=== PATIENT | female | born 1940 | race Two or more races ===

== ENCOUNTER 2016-07-12 03:41 | Emergency (ER) | payer BC, MEDICARE ==
[~2016-07-12] VITALS: Ht 165.1 cm; Wt 88.0 kg
[~2016-07-12 03:41] MED LIST: ASPI325T4 PO; CHOL500016 PO; CLIN300C86 PO; FLEC50TA PO; GABA-586 PO; HYDR-971 PO; HYDR12.53 PO; LEVO125T5 PO; LOSA100T6 PO; SIMV40TA3 PO; SITA1TAB11 PO
[2016-07-12 03:55] VITALS: BP 183/88
[2016-07-12] MEDS ORDERED: LIDOCAINE 2% VISCOUS 15 ML SOLUTION. ONE (04:15)
[2016-07-12] MEDS ORDERED: LIDOCAINE 2% JELLY 6ML IN APPLICATOR. MM ONE (04:45)
[2016-07-12] MEDS ORDERED: LIDOCAINE 1%/EPI 1:100,000 20 ML VIAL. INJ ONE (04:45)
[2016-07-12 04:52] LABS: BASO # 0.1 x10^3/uL (0.0-0.2); BASO % 1 % (0-3); EOS % 8 % (0-3); HEMATOCRIT 39.7 % (36.0-47.0); HEMOGLOBIN 13.1 g/dL (12.0-15.5); LYMPH # 3.4 x10^3/uL (1.0-4.8); LYMPH % 31 % (24-48); MEAN CORPUSCULAR HEMOGLOBIN 27 pg (25-35); MEAN CORPUSCULAR HGB CONC 33 g/dL (31-37); MEAN CORPUSCULAR VOLUME 82 fL (79-100); MONO % 7 % (0-9); NEUT % 54 % (31-73); PLATELET COUNT 269 x10^3/uL (140-400); RED BLOOD COUNT 4.84 x10^6/uL (3.50-5.40); RED CELL DISTRIBUTION WIDTH 14.5 % (11.5-14.5); WHITE BLOOD COUNT 10.7 x10^3/uL (4.0-11.0)
[2016-07-12 04:59] LABS: CALCIUM 10.7 mg/dL (8.5-10.1); CREATININE 0.9 mg/dL (0.6-1.0); GFR 61.2; POTASSIUM 3.1 mmol/L (3.5-5.1)
[2016-07-12 05:03] LABS: INR 1.1 (0.8-1.1); PROTHROMBIN TIME PATIENT 13.1 SEC (11.7-14.0)
[2016-07-12 05:06] LABS: ALBUMIN 3.9 g/dL (3.4-5.0); TOTAL BILIRUBIN 0.4 mg/dL (0.2-1.0); TOTAL PROTEIN 7.9 g/dL (6.4-8.2)
[2016-07-12] MEDS ORDERED: CEPH-264 PO (05:27)
--- NOTE | 2016-07-12 05:28 | PHYS DOC ---
Past Medical History Past Medical History: A-Fib, Diabetes-Type II, High Cholesterol, Hypertension, Hyperthyroid Past Surgical History: Appendectomy, , Hysterectomy, Tonsillectomy, Other Additional Past Surgical Histo: adhesions, sinus, cysts, Vonwildabrands dx Alcohol Use: None Drug Use: None Adult General Chief Complaint Chief Complaint: NOSEBLEED HPI HPI Patient is a 75 year old female with history significant for von Willebrand's disease who presents here today secondary to epistaxis was started earlier this morning. Patient reports she's had episodes in the past with severe epistaxis. Patient denies any recent trauma. Patient's physical exam is significant for active bleeding from her left naris. Patient is coughing up significant amount of blood clot. Patient's nares were cleared with blowing her nose into towel. I was able to visualize inside her nares showed have a vessel that does appear to be excoriated. We applied pressure on her nose for approximately 20 minutes with nasal clamps with significant improvement in the amount of bleeding that she was having. After hemostasis had been obtained versus lidocaine was injected into her left naris. A nasal tampon was then inserted which the patient tolerated very well. A nasal tampon was infiltrated with 5 mL of light a with epi. And the clamps were placed back on the patient's nares. Patient's clamps were placed for approximately an additional 10 minutes. Patient no further episodes of rectal bleeding. The clamps removed and the patient was monitored in the ER for an additional 30 minutes without any further incidence of bleeding. Patient feels very comfortable the plan to be discharged home at this time and to follow-up with her primary care physician for reevaluation. I did discuss the patient that she might need to see an ENT specialist but that she should call her doctor in the morning and asked them if he feels comfortable taking care of her or if he was referred to a specialist. Patient will be discharged home on Keflex for prophylaxis against sinusitis. A/P epistaxis: Hemostasis obtained after pressure and nasal tampon placed. Patient stable to be discharged home. Review of Systems Review of Systems Constitutional: Denies fever or chills [] Eyes: Denies change in visual acuity, redness, or eye pain [] All other review systems are negative except as documented in history of present illness portion Current Medications Current Medications Current Medications Medications (Trade) Dose Ordered Sig/Kamron Start Time Stop Time Status Last Admin Dose Admin Lidocaine HCl (Glydo (Lidocaine) Jelly) 1 hiro 1X ONCE 07/12/16 04:45 07/12/16 04:46 DC 07/12/16 04:45 1 HIRO Lidocaine HCl (Viscous Lidocaine) 15 ml STK-MED ONCE 07/12/16 04:15 07/12/16 04:16 DC Lidocaine/ Epinephrine (Xylocaine 1%-Epi 1:100,000) 20 ml 1X ONCE 07/12/16 04:45 07/12/16 04:46 DC Allergies Allergies Allergies Coded Allergies Type Severity Reaction Last Updated Verified Penicillins Allergy Intermediate 01/06/15 No Sulfa (Sulfonamide Antibiotics) Allergy Intermediate rash 01/06/15 No latex Allergy Mild sneezing 01/06/15 No Physical Exam Physical Exam Constitutional: Well developed, well nourished, no acute distress, non-toxic appearance. [] HENT: Normocephalic, atraumatic, bilateral external ears normal, oropharynx moist, no oral exudates, please see above. Active bleeding from left naris. Eyes: PERRLA, EOMI, conjunctiva normal, no discharge. [] Neck: Normal range of motion, no tenderness, supple, no stridor. [] Cardiovascular:Heart rate regular rhythm, no murmur [] Lungs & Thorax: Bilateral breath sounds clear to auscultation [] Abdomen: Bowel sounds normal, soft, no tenderness, no masses, no pulsatile masses. [] Skin: Warm, dry, no erythema, no rash. [] Back: No tenderness, no CVA tenderness. [] Extremities: No tenderness, no cyanosis, no clubbing, ROM intact, no edema. [] Neurologic: Alert and oriented X 3, normal motor function, normal sensory function, no focal deficits noted. [] Psychologic: Affect normal, judgement normal, mood normal. [] Current Patient Data Vital Signs Vital Signs Date Time Temp Pulse Resp B/P (MAP) Pulse Ox O2 Delivery O2 Flow Rate FiO2 07/12/16 03:55 98.8 105 20 183/88 (119) 95 Room Air 98.8 Lab Values Laboratory Tests Test 07/12/16 04:39 White Blood Count 10.7 x10^3/uL (4.0-11.0) Red Blood Count 4.84 x10^6/uL (3.50-5.40) Hemoglobin 13.1 g/dL (12.0-15.5) Hematocrit 39.7 % (36.0-47.0) Mean Corpuscular Volume 82 fL (79-100) Mean Corpuscular Hemoglobin 27 pg (25-35) Mean Corpuscular Hemoglobin Concent 33 g/dL (31-37) Red Cell Distribution Width 14.5 % (11.5-14.5) Platelet Count 269 x10^3/uL (140-400) Neutrophils (%) (Auto) 54 % (31-73) Lymphocytes (%) (Auto) 31 % (24-48) Monocytes (%) (Auto) 7 % (0-9) Eosinophils (%) (Auto) 8 % (0-3) H Basophils (%) (Auto) 1 % (0-3) Neutrophils # (Auto) 5.8 x10^3uL (1.8-7.7) Lymphocytes # (Auto) 3.4 x10^3/uL (1.0-4.8) Monocytes # (Auto) 0.7 x10^3/uL (0.0-1.1) Eosinophils # (Auto) 0.8 x10^3/uL (0.0-0.7) H Basophils # (Auto) 0.1 x10^3/uL (0.0-0.2) Prothrombin Time 13.1 SEC (11.7-14.0) Prothrombin Time INR 1.1 (0.8-1.1) Sodium Level 136 mmol/L (136-145) Potassium Level 3.1 mmol/L (3.5-5.1) L Chloride Level 98 mmol/L (98-107) Carbon Dioxide Level 28 mmol/L (21-32) Anion Gap 10 (6-14) Blood Urea Nitrogen 21 mg/dL (7-20) H Creatinine 0.9 mg/dL (0.6-1.0) Estimated GFR (Cockcroft-Gault) 61.2 BUN/Creatinine Ratio 23 (6-20) H Glucose Level 208 mg/dL (70-99) H Calcium Level 10.7 mg/dL (8.5-10.1) H Total Bilirubin 0.4 mg/dL (0.2-1.0) Aspartate Amino Transferase (AST) 22 U/L (15-37) Alanine Aminotransferase (ALT) 30 U/L (14-59) Alkaline Phosphatase 61 U/L (46-116) Total Protein 7.9 g/dL (6.4-8.2) Albumin 3.9 g/dL (3.4-5.0) Albumin/Globulin Ratio 1.0 (1.0-1.7) Laboratory Tests 07/12/16 04:39 Laboratory Tests 07/12/16 04:39 EKG EKG [] Radiology/Procedures Radiology/Procedures [] Impressions: All labs were within normal limits. Physical exam on patient's right foot reveals ecchymosis tenderness and swelling to her right fifth metatarsal at the MTP junction. Patient also complaining of pain to her right foot. Patient reports she stopped her right foot up against a table earlier today. Patient's x-ray of her right foot reveals no acute fracture in the fourth metatarsal. Course & Med Decision Making Course & Med Decision Making Pertinent Labs and Imaging studies reviewed. (See chart for details) [] Dragon Disclaimer Dragon Disclaimer This electronic medical record was generated, in whole or in part, using a voice recognition dictation system. Departure Departure Impression: Primary Impression: Epistaxis Additional Impressions: Contusion of right foot Von Willebrand's (-Baldo') disease Disposition: HOME, SELF-CARE Condition: IMPROVED Referrals: CHRIS MURPHY MD (PCP) Patient Instructions: Contusion, Nosebleed Scripts Cephalexin (KEFLEX) 500 Mg Capsule 500 MG PO QID for 5 Days, #20 CAP Prov: JOSE CRUZ WALL MD 07/12/16 Problem Qualifiers JOSE CRUZ WALL MD July 12, 2016 05:28
--- NOTE | 2016-07-12 08:01 | RAD ---
Indication injury, pain. AP oblique and lateral views of the right foot were obtained. No acute bony abnormality is seen
== END 2016-07-12 05:45 | disposition home or self-care (01) ==
LOC: ER 03:41
DX: R04.0 Epistaxis (principal); S90.31XA Contusion of right foot, initial encounter; D68.0 Von Willebrand disease; I48.91 Unspecified atrial fibrillation; I10 Essential (primary) hypertension; E78.00 Pure hypercholesterolemia, unspecified; E11.9 Type 2 diabetes mellitus without complications; E05.90 Thyrotoxicosis, unspecified without thyrotoxic crisis or storm; Z90.710 Acquired absence of both cervix and uterus; Z90.49 Acquired absence of other specified parts of digestive tract; Z88.2 Allergy status to sulfonamides; Z91.040 Latex allergy status; Z88.0 Allergy status to penicillin; X58.XXXA Exposure to other specified factors, initial encounter; Y93.89 Activity, other specified; Y92.89 Other specified places as the place of occurrence of the external cause; Y99.8 Other external cause status
CPT/HCPCS: 30901; 36415; 73630; 80053; 85027; 85610; 99285-25

== ENCOUNTER → 2017-11-19 | Day surgery (SDC) | payer BC ==
[~2017-11-19] MED LIST changes: -ASPI325T4 PO; +ASPI325T8 PO; +CEFP100T PO; +CEPH-264 PO; +CLIN300C8 PO; -CLIN300C86 PO; +DULO30CA2 PO; +GLIP5TAB10 PO; +HYDR25TA9 PO; +HYDROmorphone 2 MG/ML VIAL IV PRN; +IV RINGERS,LACTATED 1000ML 1,000 ML IV SCH; +LIDOCAINE 1% PF 2 ML VIAL. ID PRN; +LIDOCAINE 2% PF Vial for OR 5 ML VIAL. ONE; -LOSA100T6 PO; +LOSA100T7 PO; +LOSA50TA2 PO; +MAGN400C PO; +METF10007 PO; +METO-239 PO; +MORPHINE SULFATE 2 MG/ML VIAL. IV PRN; +PROCHLORPERAZINE 10 MG/2 ML VIAL. IV PRN; +PROPOFOL 20 ML IV ONE; +Pantoprazole PO; +fentaNYL PF VIAL 100 MCG/2 ML VIAL IV PRN
[2017-11-19 08:05] VITALS: BP 136/79
== END | disposition home or self-care (01) ==
LOC: ENDOS 05:46
PROVIDERS: ATTEND Internal Medicine Gastroenterology
DX: K22.2 Esophageal obstruction (principal); I10 Essential (primary) hypertension; E78.5 Hyperlipidemia, unspecified; K21.9 Gastro-esophageal reflux disease without esophagitis; E11.9 Type 2 diabetes mellitus without complications; E03.9 Hypothyroidism, unspecified; I48.91 Unspecified atrial fibrillation; M19.90 Unspecified osteoarthritis, unspecified site; I35.1 Nonrheumatic aortic (valve) insufficiency; Z90.79 Acquired absence of other genital organ(s); Z90.722 Acquired absence of ovaries, bilateral; Z98.890 Other specified postprocedural states; Z88.0 Allergy status to penicillin; Z88.2 Allergy status to sulfonamides; Z88.1 Allergy status to other antibiotic agents; Z91.040 Latex allergy status; Z79.82 Long term (current) use of aspirin; Z79.899 Other long term (current) drug therapy; Z79.84 Long term (current) use of oral hypoglycemic drugs
CPT/HCPCS: 43235; 43450; J2001; J2704

== ENCOUNTER 2018-01-05 08:31 | Inpatient (IN) | payer BC ==
[~2018-01-05] VITALS: Ht 157.5 cm; Wt 76.2 kg
[~2018-01-05 08:31] MED LIST changes: -HYDROmorphone 2 MG/ML VIAL IV PRN; -IV RINGERS,LACTATED 1000ML 1,000 ML IV SCH; -LIDOCAINE 1% PF 2 ML VIAL. ID PRN; -LIDOCAINE 2% PF Vial for OR 5 ML VIAL. ONE; -MORPHINE SULFATE 2 MG/ML VIAL. IV PRN; -PROCHLORPERAZINE 10 MG/2 ML VIAL. IV PRN; -PROPOFOL 20 ML IV ONE; -fentaNYL PF VIAL 100 MCG/2 ML VIAL IV PRN
[2018-01-05] MEDS ORDERED: IV NORMAL SALINE 1000ML BAG 1,000 ML IV SCH (08:46)
[2018-01-05] MEDS ORDERED: NORMAL SALINE IV ONE (09:00)
[2018-01-05] MEDS ORDERED: ACETAMINOPHEN 500 MG TABLET PO ONE (09:15)
--- NOTE | 2018-01-05 09:16 | PHYS DOC ---
Past Medical History Past Medical History: A-Fib, Diabetes-Type II, High Cholesterol, Hypertension, Hyperthyroid, Migraines, UTI, Other Additional Past Medical Histor: SEPSIS Past Surgical History: Appendectomy, , Hysterectomy, Tonsillectomy, Tubal ligation, Other Additional Past Surgical Histo: adhesions, sinus, cysts, Vonwildabrands dx Alcohol Use: None Drug Use: None Adult General Chief Complaint Chief Complaint: FEVER HPI HPI Patient is a 77 year old female with history of A. fib, hypertension, high cholesterol, frequent UTIs, who presents today complaining of altered mental status since this morning. Patient states the family reported to mother she has been "blubbering." Patient states she has history of UTI. Patient denies any nausea vomiting. She is febrile. Temperature via EMS was 101.6 Review of Systems Review of Systems Constitutional: Fever Eyes: Denies change in visual acuity, redness, or eye pain [] HENT: Denies nasal congestion or sore throat [] Respiratory: Denies cough or shortness of breath [] Cardiovascular: No additional information not addressed in HPI [] GI: Denies abdominal pain, nausea, vomiting, bloody stools or diarrhea [] : Denies dysuria or hematuria [] Musculoskeletal: Denies back pain or joint pain [] Integument: Denies rash or skin lesions [] Neurologic: Reports altered mental status. Denies headache, focal weakness or sensory changes [] All other systems were reviewed and found to be within normal limits, except as documented in this note. Current Medications Current Medications Current Medications Medications (Trade) Dose Ordered Sig/Kamron Start Time Stop Time Status Last Admin Dose Admin Acetaminophen (Tylenol) 1,000 mg 1X ONCE 01/05/18 09:15 01/05/18 09:16 DC 01/05/18 09:37 1,000 MG Ceftriaxone Sodium 50 ml @ 100 mls/hr 1X ONCE 01/05/18 09:00 01/05/18 09:29 DC 01/05/18 09:37 100 MLS/HR Sodium Chloride 1,000 ml @ 100 mls/hr Q10H 01/05/18 08:46 01/05/18 18:45 01/05/18 09:37 100 MLS/HR Allergies Allergies Allergies Coded Allergies Type Severity Reaction Last Updated Verified Penicillins Allergy Intermediate 11/19/17 Yes Sulfa (Sulfonamide Antibiotics) Allergy Intermediate rash 11/19/17 Yes ciprofloxacin Allergy Intermediate 11/19/17 Yes latex Allergy Mild sneezing 11/19/17 Yes Physical Exam Physical Exam Constitutional: Well developed, well nourished, no acute distress, non-toxic appearance. [] HENT: Normocephalic, atraumatic, bilateral external ears normal, oropharynx moist, no oral exudates, nose normal. [] Eyes: PERRLA, EOMI, conjunctiva normal, no discharge. [] Neck: Normal range of motion, no tenderness, supple, no stridor. [] Cardiovascular:Heart rate regular rhythm, no murmur [] Lungs & Thorax: Bilateral breath sounds clear to auscultation [] Abdomen: Bowel sounds normal, soft, no tenderness, no masses, no pulsatile masses. [] Skin: Warm, dry, no erythema, no rash. [] Back: No tenderness, no CVA tenderness. [] Extremities: No tenderness, no cyanosis, no clubbing, ROM intact, no edema. [] Neurologic: Alert and oriented X 3, normal motor function, normal sensory function, no focal deficits noted. [] Psychologic: Affect normal, judgement normal, mood normal. [] Current Patient Data Vital Signs Vital Signs Date Time Temp Pulse Resp B/P (MAP) Pulse Ox O2 Delivery O2 Flow Rate FiO2 01/05/18 11:30 84 18 117/58 (77) 97 Nasal Cannula 2.0 01/05/18 08:31 100.4 100.4 Lab Values Laboratory Tests Test 01/05/18 08:20 01/05/18 08:30 01/05/18 09:27 01/05/18 09:30 Influenza Type A Antigen Negative (NEGATIVE) Influenza Type B Antigen Negative (NEGATIVE) White Blood Count 10.1 x10^3/uL (4.0-11.0) Red Blood Count 4.97 x10^6/uL (3.50-5.40) Hemoglobin 13.4 g/dL (12.0-15.5) Hematocrit 39.9 % (36.0-47.0) Mean Corpuscular Volume 80 fL (79-100) Mean Corpuscular Hemoglobin 27 pg (25-35) Mean Corpuscular Hemoglobin Concent 34 g/dL (31-37) Red Cell Distribution Width 14.8 % (11.5-14.5) H Platelet Count 249 x10^3/uL (140-400) Neutrophils (%) (Auto) 89 % (31-73) H Lymphocytes (%) (Auto) 3 % (24-48) L Monocytes (%) (Auto) 4 % (0-9) Eosinophils (%) (Auto) 4 % (0-3) H Basophils (%) (Auto) 1 % (0-3) Neutrophils # (Auto) 9.0 x10^3uL (1.8-7.7) H Lymphocytes # (Auto) 0.3 x10^3/uL (1.0-4.8) L Monocytes # (Auto) 0.4 x10^3/uL (0.0-1.1) Eosinophils # (Auto) 0.4 x10^3/uL (0.0-0.7) Basophils # (Auto) 0.0 x10^3/uL (0.0-0.2) Segmented Neutrophils % 89 % (35-66) H Band Neutrophils % 2 % (0-9) Lymphocytes % 2 % (24-48) L Monocytes % 3 % (0-10) Eosinophils % 4 % (0-5) Platelet Estimate Adequate (ADEQUATE) Lactic Acid Level 5.1 mmol/L (0.4-2.0) *H Troponin I Quantitative < 0.017 ng/mL (0.000-0.055) Urine Collection Type Unknown Urine Color Yellow Urine Clarity Clear Urine pH 7.5 Urine Specific [place] 1.015 Urine Protein 30 mg/dL (NEG-TRACE) Urine Glucose (UA) Negative mg/dL (NEG) Urine Ketones (Stick) Trace mg/dL (NEG) Urine Blood Negative (NEG) Urine Nitrite Negative (NEG) Urine Bilirubin Negative (NEG) Urine Urobilinogen Dipstick 0.2 mg/dL (0.2 mg/dL) Urine Leukocyte Esterase Negative (NEG) Urine RBC 3-5 /HPF (0-2) Urine WBC Occ /HPF (0-4) Urine Squamous Epithelial Cells Occ /LPF Urine Bacteria Few /HPF (0-FEW) Urine Hyaline Casts Occasional /HPF Sodium Level 140 mmol/L (136-145) Potassium Level 4.0 mmol/L (3.5-5.1) Chloride Level 101 mmol/L (98-107) Carbon Dioxide Level 26 mmol/L (21-32) Anion Gap 13 (6-14) Blood Urea Nitrogen 23 mg/dL (7-20) H Creatinine 1.3 mg/dL (0.6-1.0) H Estimated GFR (Cockcroft-Gault) 39.8 BUN/Creatinine Ratio 18 (6-20) Glucose Level 198 mg/dL (70-99) H Calcium Level 10.0 mg/dL (8.5-10.1) Total Bilirubin 0.5 mg/dL (0.2-1.0) Aspartate Amino Transferase (AST) 20 U/L (15-37) Alanine Aminotransferase (ALT) 25 U/L (14-59) Alkaline Phosphatase 72 U/L (46-116) Total Protein 8.1 g/dL (6.4-8.2) Albumin 4.0 g/dL (3.4-5.0) Albumin/Globulin Ratio 1.0 (1.0-1.7) Laboratory Tests 01/05/18 08:30 Laboratory Tests 01/05/18 09:30 EKG EKG 10:[address] Mackenzie sinus rhythm HR 85 no STEMI[] Radiology/Procedures Radiology/Procedures []PROCEDURE: PORTABLE CHEST 1V PORTABLE CHEST 1V History: Weakness and fever. Comparison: October 28, 2017 Findings: Single view of the chest is submitted. There is no infiltrate, pneumothorax, or effusion. The pericardial cardiac silhouette is stable, within normal limits given technique. There is atherosclerotic calcification near the aortic arch, somewhat tortuous thoracic aorta. Impression: 1. There is no radiographic evidence of acute cardiopulmonary disease. Electronically signed by: Servando Castañeda MD (01/05/2018 9:15 AM) [id number] DICTATED and SIGNED BY: SERVANDO CASTAÑEDA MD DATE: 01/05/18913 Course & Med Decision Making Course & Med Decision Making Pertinent Labs and Imaging studies reviewed. (See chart for details) This is a 77-year-old female patient presenting to the ED with altered mental status. Also febrile. Temperature in route was 101.6, temp on arrival was 100.4 HR 105, patient was started on sepsis protocol. Patient was also given Rocephin. CBC with a normal WBC but noted for left shift, CMP with no acute findings, urine analysis is negative for infection, chest x-ray negative for any acute findings. Lactic 5.1 at 8:30 AM, repeat lactic after IV fluids 2.1. Negative influenza A or B. Vitals also improving with heart rate of 84 from 105. 11:[address] Hitchcock who accepted patient for admission Routine consult placed for infectious disease. Dragon Disclaimer Dragon Disclaimer This electronic medical record was generated, in whole or in part, using a voice recognition dictation system. Departure Departure Impression: Primary Impression: Fever Additional Impressions: Lactic acidosis Tachycardia Disposition: ADMITTED INPATIENT Condition: STABLE Referrals: CHRIS MURPHY MD (PCP) Problem Qualifiers Primary Impression: Fever Fever type: unspecified Qualified Codes: R50.9 - Fever, unspecified MUTUNGAMINISTERIO STOVE POLISHER Jan 05, 2018 09:16
[2018-01-05 09:19] LABS: BASO % 1 % (0-3); EOS # 0.4 x10^3/uL (0.0-0.7); EOS % 4 % (0-3); HEMATOCRIT 39.9 % (36.0-47.0); HEMOGLOBIN 13.4 g/dL (12.0-15.5); LYMPH # 0.3 x10^3/uL (1.0-4.8); LYMPH % 3 % (24-48); MEAN CORPUSCULAR HEMOGLOBIN 27 pg (25-35); MEAN CORPUSCULAR HGB CONC 34 g/dL (31-37); MEAN CORPUSCULAR VOLUME 80 fL (79-100); MONO # 0.4 x10^3/uL (0.0-1.1); MONO % 4 % (0-9); NEUT % 89 % (31-73); PLATELET COUNT 249 x10^3/uL (140-400); RED BLOOD COUNT 4.97 x10^6/uL (3.50-5.40); RED CELL DISTRIBUTION WIDTH 14.8 % (11.5-14.5); WHITE BLOOD COUNT 10.1 x10^3/uL (4.0-11.0)
--- NOTE | 2018-01-05 09:19 | RAD ---
PORTABLE CHEST 1V History: Weakness and fever. Comparison: October 28, 2017 Findings: Single view of the chest is submitted. There is no infiltrate, pneumothorax, or effusion. The pericardial cardiac silhouette is stable, within normal limits given technique. There is atherosclerotic calcification near the aortic arch, somewhat tortuous thoracic aorta. Impression: 1. There is no radiographic evidence of acute cardiopulmonary disease. Electronically signed by: Robetro Rothman MD (01/05/2018 9:15 AM) [id number]
[2018-01-05 09:35] LABS: BILIRUBIN,URINE NEGATIVE (NEG); CLARITY,URINE CLEAR; COLOR,URINE YELLOW; NITRITE,URINE NEGATIVE (NEG); PH,URINE 7.5; PROTEIN,URINE 30 mg/dL (NEG-TRACE); UROBILINOGEN,URINE 0.2 mg/dL (0.2 mg/dL)
[2018-01-05 09:57] LABS: CREATININE 1.3 mg/dL (0.6-1.0); GFR 39.8
[2018-01-05 10:03] LABS: TOTAL BILIRUBIN 0.5 mg/dL (0.2-1.0); TOTAL PROTEIN 8.1 g/dL (6.4-8.2)
[2018-01-05 10:14] LABS: HYALINE CASTS, URINE OCCASIONAL /HPF; SQUAMOUS EPITHELIAL CELL,UR OCC /LPF
[2018-01-05 10:15] LABS: BACTERIA,URINE FEW /HPF (0-FEW); WBC,URINE OCC /HPF (0-4)
--- NOTE | 2018-01-05 10:30 | EKG ---
[facility] [address] [place] [address] Test Date: 2018-01-05 Test Time: 10:15:28 Pat Name: THOMAS HOPKINS Department: Room: Gender: F Pulley Maintainer: SHARI : 1940 Requested By: MINISTERIO BURNETTE Order Number: [id number] Reading MD: Jesus Manuel Berg Measurements Intervals [place] Rate: 85 P: -97 DC: 100 QRS: -24 QRSD: 104 T: 17 QT: 406 QTc: 489 Interpretive Statements SINUS RHYTHM LEFTWARD AXIS PROLONGED QT NO SPECIFIC ECG ABNORMALITIES Electronically Signed On 01-07-2018 10:33:36 CDT by Jesus Manuel Berg
[2018-01-05 10:33] LABS: % BANDS 2 % (0-9); % EOS 4 % (0-5); % LYMPHS 2 % (24-48); % MONOS 3 % (0-10); % SEGS 89 % (35-66)
[2018-01-05 10:34] LABS: PLT ESTIMATE ADEQUATE (ADEQUATE)
[2018-01-05 11:39] LABS: INFLUENZA A PATIENT NEGATIVE (NEGATIVE); INFLUENZA B PATIENT NEGATIVE (NEGATIVE)
[2018-01-05] MEDS ORDERED: DEXTROSE 50% 25 GM / 50ML DISP.SYRIN. IV PRN (12:15)
[2018-01-05] MEDS ORDERED: ONDANSETRON PF 4 MG/2 ML VIAL. IV PRN (12:15)
[2018-01-05] MEDS ORDERED: ACETAMINOPHEN 325 MG TABLET. PO PRN (12:15)
[2018-01-05] MEDS ORDERED: MORPHINE SULFATE 2 MG/ML VIAL. IV PRN (12:15)
[2018-01-05] MEDS: IV NORMAL SALINE 1000ML BAG 1,000 ML IV ONE (12:15)
[2018-01-05 15:00] VITALS: BP 121/80
--- NOTE | 2018-01-05 17:15 | HP ---
ADMIT DATE: 01/05/2018 CHIEF COMPLAINT: Fever. HISTORY OF PRESENT ILLNESS: The patient is a pleasant elderly female who presents with fever. She saw her doctor yesterday, was sent home with some antibiotics. She has got a history of frequent UTIs. She actually saw urologist for the UTIs. She thought she was doing well and then today she developed another fever. She came to the ER for evaluation. Family reports the patient may have had some mental status change. Temperature with EMS was 101.6, when she got to the ER, it was 100.4. She is slightly tachycardic, has associated nausea, tried taking some [id number] meds, but that does not seem to work. I discussed the case with ER physician. We are going to admit the patient and give her IV antibiotics and fluids. PAST MEDICAL HISTORY: Persistent fevers recently, UTIs, AFib, diabetes, hypertension, hyperlipidemia, hypothyroidism, migraines, sepsis, , hysterectomy, tonsillectomy, tubal ligation, sinus cyst, adhesions and von Willebrand's disease. ALLERGIES: None. FAMILY HISTORY: Von Willebrand's disease. SOCIAL HISTORY: She does not drink, smoke or take drugs. 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 I think she is . MEDICATIONS: Reviewed, please refer to the MRAD. REVIEW OF SYSTEMS: GENERAL: She complains of fevers. SKIN: No bruising, hair changes or rashes. EYES: No blurred, double or loss of vision. NOSE AND THROAT: No history of nosebleeds, hoarseness or sore throat. HEART: No history of palpitations, chest pain or shortness of breath on exertion. LUNGS: Denies cough, hemoptysis, wheezing or shortness of breath. GASTROINTESTINAL: Denies changes in appetite, nausea, vomiting, diarrhea or constipation. GENITOURINARY: She complains of dysuria. NEUROLOGIC: She complains of weakness. PSYCHIATRIC: No history of panic, anxiety or depression. ENDOCRINE: No history of heat or cold intolerance, polyuria or polydipsia. EXTREMITIES: Denies muscle weakness, joint pain, pain on walking or stiffness. PHYSICAL EXAMINATION: VITAL SIGNS: Temperature currently afebrile, but was 100.4 when she arrived, pulse 90, respirations 18, blood pressure 132/78. GENERAL: She is alert, cooperative. Her family is present. HEART: Normal S1, S2. LUNGS: Clear. ABDOMEN: Soft, slightly tender in the lower quadrants. EXTREMITIES: No edema. ENDOCRINE: No thyromegaly. LYMPHATICS: No cervical nodes. HEMATOPOIETIC: No bruising. LABORATORY DATA: Urinalysis only showed a few bacteria and a few squamous epithelial cells. White count is 10. BUN is 23, creatinine 1.3, glucose 198. ASSESSMENT AND PLAN: Fever of unknown origin. The patient has been admitted. We will start IV Levaquin, IV fluids, repeat her labs in the morning. We will try to resume her home meds. If she is not resolved by morning, we will consider consultation with other specialists such as Infectious Disease or Genitourinary Medicine. BONNIE HOANG DO DR: ELSA/rachael JOB#: [id number] / [id number]
[2018-01-05 19:00] VITALS: BP 137/74
[2018-01-05 23:00] VITALS: BP 155/70
[2018-01-06 03:00] VITALS: BP 148/67
[2018-01-06 05:59] LABS: BASO % 1 % (0-3); EOS # 0.5 x10^3/uL (0.0-0.7); EOS % 8 % (0-3); HEMATOCRIT 33.8 % (36.0-47.0); HEMOGLOBIN 11.4 g/dL (12.0-15.5); LYMPH # 1.5 x10^3/uL (1.0-4.8); LYMPH % 22 % (24-48); MEAN CORPUSCULAR HEMOGLOBIN 27 pg (25-35); MEAN CORPUSCULAR HGB CONC 34 g/dL (31-37); MEAN CORPUSCULAR VOLUME 79 fL (79-100); MONO # 0.5 x10^3/uL (0.0-1.1); MONO % 8 % (0-9); NEUT # 4.2 x10^3uL (1.8-7.7); NEUT % 62 % (31-73); PLATELET COUNT 201 x10^3/uL (140-400); RED BLOOD COUNT 4.26 x10^6/uL (3.50-5.40); RED CELL DISTRIBUTION WIDTH 14.7 % (11.5-14.5); WHITE BLOOD COUNT 6.8 x10^3/uL (4.0-11.0)
[2018-01-06 06:02] LABS: CALCIUM 9.5 mg/dL (8.5-10.1); CREATININE 0.7 mg/dL (0.6-1.0); GFR 81.4
[2018-01-06 07:00] VITALS: BP 186/79
[2018-01-06] MEDS: cefTRIAXone IV Push 1 GM VIAL. IVP SCH (09:49)
--- NOTE | 2018-01-06 10:16 | PDOC ---
PROGRESS NOTES History of Present Illness History of Present Illness ASSESSMENT AND PLAN: sepsis Fever acute encephalo[ailyn DM A-fib HTN Leg pain hypokalemia admitted. IV Levaquin, IV fluids, home meds. blood cult consultation Infectious Disease sq lovenox dvt prophylaxis DM A-fib HTN Leg pain Vitals Vitals Vital Signs Date Time Temp Pulse Resp B/P (MAP) Pulse Ox O2 Delivery O2 Flow Rate FiO2 01/06/18 07:00 98.1 74 18 186/79 (114) 96 Room Air 98.1 01/05/18 20:20 2.0 Physical Exam General: Alert, Oriented X3, Cooperative, No acute distress Heart: Regular rate Lungs: Clear Abdomen: Normal bowel sounds, Soft Extremities: No clubbing, No cyanosis, No edema Skin: No significant lesion Labs LABS PROCEDURE: PORTABLE CHEST 1V PORTABLE CHEST 1V History: Weakness and fever. Comparison: October 28, 2017 Findings: Single view of the chest is submitted. There is no infiltrate, pneumothorax, or effusion. The pericardial cardiac silhouette is stable, within normal limits given technique. There is atherosclerotic calcification near the aortic arch, somewhat tortuous thoracic aorta. Impression: 1. There is no radiographic evidence of acute cardiopulmonary disease. Electronically signed by: Roberto Rothman MD (01/05/2018 9:15 AM) [email or web address] Laboratory Tests Test 01/05/18 12:20 01/05/18 16:50 01/05/18 21:26 01/06/18 05:00 Lactic Acid Level 2.1 mmol/L (0.4-2.0) 2.5 mmol/L (0.4-2.0) Glucose (Fingerstick) 100 mg/dL (70-99) White Blood Count 6.8 x10^3/uL (4.0-11.0) Red Blood Count 4.26 x10^6/uL (3.50-5.40) Hemoglobin 11.4 g/dL (12.0-15.5) Hematocrit 33.8 % (36.0-47.0) Mean Corpuscular Volume 79 fL (79-100) Mean Corpuscular Hemoglobin 27 pg (25-35) Mean Corpuscular Hemoglobin Concent 34 g/dL (31-37) Red Cell Distribution Width 14.7 % (11.5-14.5) Platelet Count 201 x10^3/uL (140-400) Neutrophils (%) (Auto) 62 % (31-73) Lymphocytes (%) (Auto) 22 % (24-48) Monocytes (%) (Auto) 8 % (0-9) Eosinophils (%) (Auto) 8 % (0-3) Basophils (%) (Auto) 1 % (0-3) Neutrophils # (Auto) 4.2 x10^3uL (1.8-7.7) Lymphocytes # (Auto) 1.5 x10^3/uL (1.0-4.8) Monocytes # (Auto) 0.5 x10^3/uL (0.0-1.1) Eosinophils # (Auto) 0.5 x10^3/uL (0.0-0.7) Basophils # (Auto) 0.0 x10^3/uL (0.0-0.2) Sodium Level 142 mmol/L (136-145) Potassium Level 3.0 mmol/L (3.5-5.1) Chloride Level 105 mmol/L (98-107) Carbon Dioxide Level 27 mmol/L (21-32) Anion Gap 10 (6-14) Blood Urea Nitrogen 14 mg/dL (7-20) Creatinine 0.7 mg/dL (0.6-1.0) Estimated GFR (Cockcroft-Gault) 81.4 Glucose Level 124 mg/dL (70-99) Calcium Level 9.5 mg/dL (8.5-10.1) Test 01/06/18 08:21 Glucose (Fingerstick) 129 mg/dL (70-99) Assessment and Plan Assessmemt and Plan Problems Medical Problems: (1) Fever Status: Acute (2) Lactic acidosis Status: Acute (3) Tachycardia Status: Acute Comment Review of Relevant I have reviewed the following items jovita (where applicable) has been applied. Labs Laboratory Tests Test 01/05/18 08:20 01/05/18 08:30 01/05/18 09:27 01/05/18 09:30 Influenza Type A Antigen Negative (NEGATIVE) Influenza Type B Antigen Negative (NEGATIVE) White Blood Count 10.1 x10^3/uL (4.0-11.0) Red Blood Count 4.97 x10^6/uL (3.50-5.40) Hemoglobin 13.4 g/dL (12.0-15.5) Hematocrit 39.9 % (36.0-47.0) Mean Corpuscular Volume 80 fL (79-100) Mean Corpuscular Hemoglobin 27 pg (25-35) Mean Corpuscular Hemoglobin Concent 34 g/dL (31-37) Red Cell Distribution Width 14.8 % (11.5-14.5) Platelet Count 249 x10^3/uL (140-400) Neutrophils (%) (Auto) 89 % (31-73) Lymphocytes (%) (Auto) 3 % (24-48) Monocytes (%) (Auto) 4 % (0-9) Eosinophils (%) (Auto) 4 % (0-3) Basophils (%) (Auto) 1 % (0-3) Neutrophils # (Auto) 9.0 x10^3uL (1.8-7.7) Lymphocytes # (Auto) 0.3 x10^3/uL (1.0-4.8) Monocytes # (Auto) 0.4 x10^3/uL (0.0-1.1) Eosinophils # (Auto) 0.4 x10^3/uL (0.0-0.7) Basophils # (Auto) 0.0 x10^3/uL (0.0-0.2) Segmented Neutrophils % 89 % (35-66) Band Neutrophils % 2 % (0-9) Lymphocytes % 2 % (24-48) Monocytes % 3 % (0-10) Eosinophils % 4 % (0-5) Platelet Estimate Adequate (ADEQUATE) Lactic Acid Level 5.1 mmol/L (0.4-2.0) Troponin I Quantitative < 0.017 ng/mL (0.000-0.055) Urine Collection Type Unknown Urine Color Yellow Urine Clarity Clear Urine pH 7.5 Urine Specific [place] 1.015 Urine Protein 30 mg/dL (NEG-TRACE) Urine Glucose (UA) Negative mg/dL (NEG) Urine Ketones (Stick) Trace mg/dL (NEG) Urine Blood Negative (NEG) Urine Nitrite Negative (NEG) Urine Bilirubin Negative (NEG) Urine Urobilinogen Dipstick 0.2 mg/dL (0.2 mg/dL) Urine Leukocyte Esterase Negative (NEG) Urine RBC 3-5 /HPF (0-2) Urine WBC Occ /HPF (0-4) Urine Squamous Epithelial Cells Occ /LPF Urine Bacteria Few /HPF (0-FEW) Urine Hyaline Casts Occasional /HPF Sodium Level 140 mmol/L (136-145) Potassium Level 4.0 mmol/L (3.5-5.1) Chloride Level 101 mmol/L (98-107) Carbon Dioxide Level 26 mmol/L (21-32) Anion Gap 13 (6-14) Blood Urea Nitrogen 23 mg/dL (7-20) Creatinine 1.3 mg/dL (0.6-1.0) Estimated GFR (Cockcroft-Gault) 39.8 BUN/Creatinine Ratio 18 (6-20) Glucose Level 198 mg/dL (70-99) Calcium Level 10.0 mg/dL (8.5-10.1) Total Bilirubin 0.5 mg/dL (0.2-1.0) Aspartate Amino Transf (AST/SGOT) 20 U/L (15-37) Alanine Aminotransferase (ALT/SGPT) 25 U/L (14-59) Alkaline Phosphatase 72 U/L (46-116) Total Protein 8.1 g/dL (6.4-8.2) Albumin 4.0 g/dL (3.4-5.0) Albumin/Globulin Ratio 1.0 (1.0-1.7) Test 01/05/18 12:20 01/05/18 16:50 01/05/18 21:26 01/06/18 05:00 Lactic Acid Level 2.1 mmol/L (0.4-2.0) 2.5 mmol/L (0.4-2.0) Glucose (Fingerstick) 100 mg/dL (70-99) White Blood Count 6.8 x10^3/uL (4.0-11.0) Red Blood Count 4.26 x10^6/uL (3.50-5.40) Hemoglobin 11.4 g/dL (12.0-15.5) Hematocrit 33.8 % (36.0-47.0) Mean Corpuscular Volume 79 fL (79-100) Mean Corpuscular Hemoglobin 27 pg (25-35) Mean Corpuscular Hemoglobin Concent 34 g/dL (31-37) Red Cell Distribution Width 14.7 % (11.5-14.5) Platelet Count 201 x10^3/uL (140-400) Neutrophils (%) (Auto) 62 % (31-73) Lymphocytes (%) (Auto) 22 % (24-48) Monocytes (%) (Auto) 8 % (0-9) Eosinophils (%) (Auto) 8 % (0-3) Basophils (%) (Auto) 1 % (0-3) Neutrophils # (Auto) 4.2 x10^3uL (1.8-7.7) Lymphocytes # (Auto) 1.5 x10^3/uL (1.0-4.8) Monocytes # (Auto) 0.5 x10^3/uL (0.0-1.1) Eosinophils # (Auto) 0.5 x10^3/uL (0.0-0.7) Basophils # (Auto) 0.0 x10^3/uL (0.0-0.2) Sodium Level 142 mmol/L (136-145) Potassium Level 3.0 mmol/L (3.5-5.1) Chloride Level 105 mmol/L (98-107) Carbon Dioxide Level 27 mmol/L (21-32) Anion Gap 10 (6-14) Blood Urea Nitrogen 14 mg/dL (7-20) Creatinine 0.7 mg/dL (0.6-1.0) Estimated GFR (Cockcroft-Gault) 81.4 Glucose Level 124 mg/dL (70-99) Calcium Level 9.5 mg/dL (8.5-10.1) Test 01/06/18 08:21 Glucose (Fingerstick) 129 mg/dL (70-99) Laboratory Tests Test 01/05/18 12:20 01/05/18 16:50 01/05/18 21:26 01/06/18 05:00 Lactic Acid Level 2.1 mmol/L (0.4-2.0) 2.5 mmol/L (0.4-2.0) Glucose (Fingerstick) 100 mg/dL (70-99) White Blood Count 6.8 x10^3/uL (4.0-11.0) Red Blood Count 4.26 x10^6/uL (3.50-5.40) Hemoglobin 11.4 g/dL (12.0-15.5) Hematocrit 33.8 % (36.0-47.0) Mean Corpuscular Volume 79 fL (79-100) Mean Corpuscular Hemoglobin 27 pg (25-35) Mean Corpuscular Hemoglobin Concent 34 g/dL (31-37) Red Cell Distribution Width 14.7 % (11.5-14.5) Platelet Count 201 x10^3/uL (140-400) Neutrophils (%) (Auto) 62 % (31-73) Lymphocytes (%) (Auto) 22 % (24-48) Monocytes (%) (Auto) 8 % (0-9) Eosinophils (%) (Auto) 8 % (0-3) Basophils (%) (Auto) 1 % (0-3) Neutrophils # (Auto) 4.2 x10^3uL (1.8-7.7) Lymphocytes # (Auto) 1.5 x10^3/uL (1.0-4.8) Monocytes # (Auto) 0.5 x10^3/uL (0.0-1.1) Eosinophils # (Auto) 0.5 x10^3/uL (0.0-0.7) Basophils # (Auto) 0.0 x10^3/uL (0.0-0.2) Sodium Level 142 mmol/L (136-145) Potassium Level 3.0 mmol/L (3.5-5.1) Chloride Level 105 mmol/L (98-107) Carbon Dioxide Level 27 mmol/L (21-32) Anion Gap 10 (6-14) Blood Urea Nitrogen 14 mg/dL (7-20) Creatinine 0.7 mg/dL (0.6-1.0) Estimated GFR (Cockcroft-Gault) 81.4 Glucose Level 124 mg/dL (70-99) Calcium Level 9.5 mg/dL (8.5-10.1) Test 01/06/18 08:21 Glucose (Fingerstick) 129 mg/dL (70-99) Microbiology 01/05/18 Blood Culture - Preliminary, Resulted NO GROWTH AFTER 1 DAY Medications Current Medications Sodium Chloride 1,720 ml @ 1,720 mls/hr 1X ONCE IV Last administered on 01/05at 09:00; Start 01/05/18 at 09:00; Stop 01/05/18 at 09:59; Status DC Sodium Chloride 1,000 ml @ 100 mls/hr Q10H IV Last administered on 01/05/18at 09:37; Start 01/05/18 at 08:46; Stop 01/05/18 at 18:45; Status DC Ceftriaxone Sodium 50 ml @ 100 mls/hr 1X ONCE IV Last administered on at 09:37; Start 01/05/18 at 09:00; Stop 01/05/18 at 09:29; Status DC Acetaminophen (Tylenol) 1,000 mg 1X ONCE PO Last administered on 01/05/18at 09 :37; Start 01/05/18 at 09:15; Stop 01/05/18 at 09:16; Status DC Ondansetron HCl (Zofran) 4 mg PRN Q8HRS PRN IV NAUSEA/VOMITING; Start at 12:15; Stop 01/06/18 at 12:14 Morphine Sulfate (Morphine Sulfate) 2 mg PRN Q2HR PRN IV PAIN; Start 01/05/18 at 12:15; Stop 01/06/18 at 12:14 Acetaminophen (Tylenol) 650 mg PRN Q4HRS PRN PO FEVER Last administered on at 23:27; Start 01/05/18 at 12:15; Stop 01/06/18 at 12:14 Sodium Chloride 1,000 ml @ 125 mls/hr 1X ONCE IV ; Start 01/05/18 at 12:15; Stop 01/05/18 at 20:14; Status DC Dextrose (Dextrose 50%-Water Syringe) 12.5 gm PRN Q15MIN PRN IV SEE COMMENTS; Start 01/05/18 at 12:15 Levofloxacin/ Dextrose 100 ml @ 100 mls/hr Q24H IV ; Start 01/05/18 at 21:00; Status UNV Ceftriaxone Sodium 1 gm/ Dextrose 50 ml @ 100 mls/hr Q24H IV ; Start 01/05/18 at 21:00; Status UNV Ceftriaxone Sodium (Rocephin) 1 gm Q24H IVP Last administered on 01/06/18at 09: 49; Start 01/06/18 at 09:00 Active Scripts Active Magnesium (Magnesium Oxide) 400 Mg Capsule 1 Cap PO DAILY [Pantoprazole] 40 MG Tablet.dr 40 Mg PO DAILYAC 30 Days Cozaar (Losartan Potassium) 50 Mg Tablet 50 Mg PO DAILY 30 Days Metoprolol Succinate ( Xl ) (Metoprolol Succinate) 25 Mg Tab.er.24h 25 Mg PO DAILY 30 Days Reported Gabapentin 300 Mg Capsule 300 Mg PO TID Metformin Hcl 1,000 Mg Tablet 1,000 Mg PO BIDWMEALS Glipizide 5 Mg Tablet 2.5 Mg PO DAILY Levothyroxine Sodium 125 Mcg Tablet 125 Mcg PO DAILYAC Simvastatin 40 Mg Tablet 40 Mg PO HS Flecainide Acetate 50 Mg Tablet 50 Mg PO Aspirin 325 Mg Tablet 325 Mg PO Vitals/I & O Vital Sign - Last 24 Hours 01/05/18 01/05/18 01/05/18 01/05/18 10:30 11:00 11:30 12:00 Pulse 84 86 84 84 Resp 14 14 18 18 B/P (MAP) 119/58 (78) 126/60 (82) 117/58 (77) 118/59 (78) Pulse Ox 97 97 97 97 O2 Delivery Nasal Cannula Nasal Cannula Nasal Cannula Nasal Cannula O2 Flow Rate 2.0 2.0 2.0 2.0 01/05/18 01/05/18 01/05/18 01/05/18 14:58 15:00 19:00 20:20 Temp 97.5 98.1 97.5 98.1 Pulse 72 69 Resp 18 17 B/P (MAP) 121/80 (94) 137/74 (95) Pulse Ox 97 98 O2 Delivery Nasal Cannula Room Air Room Air Nasal Cannula O2 Flow Rate 2.0 2.0 01/05/18 01/06/18 01/06/18 23:00 03:00 07:00 Temp 98.2 98.2 98.1 98.2 98.2 98.1 Pulse 59 57 74 Resp 18 16 18 B/P (MAP) 155/70 (98) 148/67 (94) 186/79 (114) Pulse Ox 97 95 96 O2 Delivery Room Air Room Air Room Air Intake and Output 01/05/18 01/05/18 01/06/18 15:00 23:00 07:00 Intake Total 1770 ml 1680 ml Output Total 1100 ml Balance 1770 ml 580 ml SLADE ZAPATA MD Jan 06, 2018 10:16
[2018-01-06 11:00] VITALS: BP 149/86
--- NOTE | 2018-01-06 13:41 | PDOC ---
Infectious Disease Note Vital Sign Vital Signs Vital Signs Date Time Temp Pulse Resp B/P (MAP) Pulse Ox O2 Delivery O2 Flow Rate FiO2 01/06/18 07:00 98.1 74 18 186/79 (114) 96 Room Air 98.1 01/05/18 20:20 2.0 Labs Lab Laboratory Tests Test 01/05/18 16:50 01/05/18 21:26 01/06/18 05:00 01/06/18 08:21 Lactic Acid Level 2.5 mmol/L (0.4-2.0) Glucose (Fingerstick) 100 mg/dL (70-99) 129 mg/dL (70-99) White Blood Count 6.8 x10^3/uL (4.0-11.0) Red Blood Count 4.26 x10^6/uL (3.50-5.40) Hemoglobin 11.4 g/dL (12.0-15.5) Hematocrit 33.8 % (36.0-47.0) Mean Corpuscular Volume 79 fL (79-100) Mean Corpuscular Hemoglobin 27 pg (25-35) Mean Corpuscular Hemoglobin Concent 34 g/dL (31-37) Red Cell Distribution Width 14.7 % (11.5-14.5) Platelet Count 201 x10^3/uL (140-400) Neutrophils (%) (Auto) 62 % (31-73) Lymphocytes (%) (Auto) 22 % (24-48) Monocytes (%) (Auto) 8 % (0-9) Eosinophils (%) (Auto) 8 % (0-3) Basophils (%) (Auto) 1 % (0-3) Neutrophils # (Auto) 4.2 x10^3uL (1.8-7.7) Lymphocytes # (Auto) 1.5 x10^3/uL (1.0-4.8) Monocytes # (Auto) 0.5 x10^3/uL (0.0-1.1) Eosinophils # (Auto) 0.5 x10^3/uL (0.0-0.7) Basophils # (Auto) 0.0 x10^3/uL (0.0-0.2) Sodium Level 142 mmol/L (136-145) Potassium Level 3.0 mmol/L (3.5-5.1) Chloride Level 105 mmol/L (98-107) Carbon Dioxide Level 27 mmol/L (21-32) Anion Gap 10 (6-14) Blood Urea Nitrogen 14 mg/dL (7-20) Creatinine 0.7 mg/dL (0.6-1.0) Estimated GFR (Cockcroft-Gault) 81.4 Glucose Level 124 mg/dL (70-99) Calcium Level 9.5 mg/dL (8.5-10.1) Test 01/06/18 11:59 Glucose (Fingerstick) 158 mg/dL (70-99) Micro Microbiology 01/05/18 Blood Culture - Preliminary, Resulted NO GROWTH AFTER 1 DAY Objective Assessment Lactic acidosis - better Fever h/o recent UTI -Took one dose abx OP -Followed by urology for recurrent UTIs Multiple abx allergies: PCN, can't remember; cipro & sulfa -itching DM A-fib HTN Leg pain Plan Plan of Care Clinically improving Check CK with pain in lower ext. Rocephin f/u cultures Supportive care Thank you Attending Co-Sign Attending Co-Sign The patient was seen and interviewed as well as examined at the bedside. The chart was reviewed. The case was discussed. Agree with the plan of care. STEFANIE ABDULLAHI APRN Jan 06, 2018 13:41 HEIDI BECK MD Jan 06, 2018 15:41
[2018-01-06 15:00] VITALS: BP 186/86
[2018-01-06] MEDS: PANTOPRAZOLE 40 MG TABLET.DR. PO SCH (18:00)
[2018-01-06] MEDS: glipiZIDE 5 MG TABLET PO SCH (18:00)
[2018-01-06] MEDS: IV NORMAL SALINE 1000ML BAG 1,000 ML IV ONE (18:35)
[2018-01-06] MEDS: metFORMIN 500 MG TABLET PO SCH (18:36)
[2018-01-06] MEDS: LOSARTAN POTASSIUM 50 MG TABLET. PO SCH (18:37)
[2018-01-06] MEDS: ASPIRIN 325 MG TABLET PO SCH (18:38)
[2018-01-06] MEDS: MAGNESIUM OXIDE 400 MG TABLET PO SCH (18:38)
[2018-01-06] MEDS: FLECAINIDE ACETATE 50 MG TABLET. PO SCH (18:40)
[2018-01-06] MEDS: METOPROLOL SUCC 24HR ER 25 MG TAB.ER.24H. PO SCH (18:40)
[2018-01-06] MEDS: traMADol 50 MG TABLET PO PRN (18:41)
[2018-01-06 19:00] VITALS: BP 180/81
[2018-01-06] MEDS: diphenhydrAMINE HCL 25 MG CAPSULE PO PRN (20:41)
[2018-01-06] MEDS: GABAPENTIN 300 MG CAPSULE. PO SCH (20:41)
[2018-01-06] MEDS ORDERED: SIMVASTATIN 40 MG TABLET. PO SCH (21:00)
[2018-01-06] MEDS ORDERED: ENALAPRILAT 2.5 MG/2 ML VIAL. IVP PRN (21:30)
--- NOTE | 2018-01-06 22:45 | CONS ---
DATE OF CONSULTATION: 01/06/2018 REFERRING PHYSICIAN: Chayito Beck APRN REASON FOR CONSULTATION: Fever and lactic acidosis. HISTORY OF PRESENT ILLNESS: This is a 77-year-old female who explains that yesterday morning at about 4:00 she woke up and went to the bathroom without any problem. She felt fine and fell back to sleep. At about 6:00, she woke up again to urinate except this time she felt weak and could not get up out of bed. Her helped her to her feet, but unfortunately her legs gave out and she fell to the floor. She was confused and her daughter told her she felt very warm. On arrival to the ER, she had a temperature of 100.4 and heart rate of 105. WBC count was normal with a lactic acid of 5.1. Urinalysis showed occasional wbc's and a few bacteria. Blood cultures are negative to date. She is currently on Rocephin empirically. The patient was hospitalized in October of this year for fever and lactic acidosis as well. At that time, workup did not reveal a source of infection. She recently was seen by Urology for recurrent urinary tract infection for which she was prescribed antibiotic. She took one dose before this admission. She had 2 prior UTIs this year. She complains of some dysuria without frequency, urgency or retention. Since her fall, she says her legs have been cramping. She denies chills, body aches, or sweats. PAST MEDICAL HISTORY: Atrial fibrillation, diabetes mellitus, hypertension, hyperlipidemia, hypothyroidism, migraines. PAST SURGICAL HISTORY: Hysterectomy, appendectomy, tonsillectomy. SOCIAL HISTORY: The patient is and lives at home. ALLERGIES: PENICILLIN, She cannot recall type of reaction. CIPRO and SULFA caused itching. MEDICATIONS: Ceftriaxone. Other medications are available and have been reviewed on the MAY. REVIEW OF SYSTEMS: Per HPI, otherwise all other review of systems is negative. PHYSICAL EXAMINATION: GENERAL: The patient is lying down, alert, in no apparent distress. VITAL SIGNS: Temperature is 98.1, blood pressure 186/79, heart rate 74, respiratory rate 18, pulse oximetry is 96% on room air. BMI is 30. HEENT: Pupils equally round, normal conjunctivae. Oral cavity, pharynx pink and moist. NECK: Supple. LUNGS: Clear to auscultation. HEART: S1, S2. ABDOMEN: Obese, bowel sounds active, soft, nontender. EXTREMITIES: No gross edema or cyanosis. SKIN: Warm without rash. NEUROLOGIC: Alert and oriented x 3. Gross movements intact. LABORATORY DATA: Today's WBC is 6.8, hemoglobin 11.4, platelet count 201,000. Creatinine 0.7, BUN 14. Sodium 142, potassium 3.0. Glucose 124. Repeat lactic acid 2.5, total bilirubin 0.5, AST 20, ALT 25, albumin 4.0. Urinalysis per HPI. Influenza screen negative. Blood cultures negative to date. A chest x-ray showed no infiltrate, pneumothorax or effusion. IMPRESSION: 1. Lactic acidosis, improved. 2. Fever. 3. History of recent urinary tract infection. She was on antibiotics prior to admission and is followed by Urology. 4. Multiple antibiotic allergies. 5. Diabetes mellitus. 6. Atrial fibrillation. 7. Hypertension. 8. Leg pain. PLAN: The patient is clinically improving. We will check a CK level considering pain in the lower extremities, continue the Rocephin. We will follow up on the cultures. Supportive care. Thank you, Chayito Beck APRN for asking us to participate in this patient's care. Should you have further questions or concerns, please call. The patient seen and examined and plan of care implemented by Dr. Heidi Monroe. DICTATED BY: This is Anastacio Jones, nursing practitioner. HEIDI MONROE MD DR: DENISE/rachael JOB#: [id number] / [id number]
[2018-01-06 23:00] VITALS: BP 165/73
[2018-01-07 03:00] VITALS: BP 164/70
[2018-01-07 05:27] LABS: BASO # 0.1 x10^3/uL (0.0-0.2); BASO % 1 % (0-3); EOS # 0.6 x10^3/uL (0.0-0.7); EOS % 9 % (0-3); HEMATOCRIT 32.5 % (36.0-47.0); HEMOGLOBIN 10.9 g/dL (12.0-15.5); LYMPH # 2.3 x10^3/uL (1.0-4.8); LYMPH % 33 % (24-48); MEAN CORPUSCULAR HEMOGLOBIN 27 pg (25-35); MEAN CORPUSCULAR HGB CONC 34 g/dL (31-37); MEAN CORPUSCULAR VOLUME 79 fL (79-100); MONO # 0.6 x10^3/uL (0.0-1.1); MONO % 9 % (0-9); NEUT # 3.5 x10^3uL (1.8-7.7); NEUT % 49 % (31-73); PLATELET COUNT 212 x10^3/uL (140-400); RED BLOOD COUNT 4.11 x10^6/uL (3.50-5.40); RED CELL DISTRIBUTION WIDTH 14.6 % (11.5-14.5)
[2018-01-07 05:44] LABS: CALCIUM 9.4 mg/dL (8.5-10.1); GFR 53.9; POTASSIUM 3.6 mmol/L (3.5-5.1)
[2018-01-07] MEDS ORDERED: LEVOTHYROXINE 125 MCG TABLET PO SCH (06:00)
[2018-01-07 07:00] VITALS: BP 152/60
[2018-01-07] MEDS: ASPIRIN 325 MG TABLET PO SCH (07:57)
[2018-01-07] MEDS: glipiZIDE 5 MG TABLET PO SCH (07:59)
[2018-01-07] MEDS: PANTOPRAZOLE 40 MG TABLET.DR. PO SCH (07:59)
[2018-01-07] MEDS: metFORMIN 500 MG TABLET PO SCH (08:00)
[2018-01-07] MEDS: FLECAINIDE ACETATE 50 MG TABLET. PO SCH (08:00)
[2018-01-07] MEDS: traMADol 50 MG TABLET PO PRN (08:01)
--- NOTE | 2018-01-07 08:17 | PDOC ---
PROGRESS NOTES Chief Complaint Chief Complaint sepsis Fever acute encephalo[ailyn DM A-fib HTN Leg pain hypokalemia History of Present Illness History of Present Illness Admitted for fever, lactic acidosis and confusion from home, lives with her . Improved with antibiotics, ID consultation, fluids. ASSESSMENT AND PLAN: sepsis Fever acute encephalo[ailyn DM A-fib HTN Leg pain hypokalemia admitted. IV Levaquin, IV fluids, home meds. blood cult consultation Infectious Disease sq lovenox dvt prophylaxis DM A-fib HTN Leg pain Vitals Vitals Vital Signs Date Time Temp Pulse Resp B/P (MAP) Pulse Ox O2 Delivery O2 Flow Rate FiO2 01/07/18 08:01 16 Room Air 01/07/18 08:00 56 152/60 01/07/18 03:00 97.3 95 97.3 01/06/18 18:41 2.0 Physical Exam General: Alert, Oriented X3, Cooperative, No acute distress Heart: Regular rate Lungs: Clear Abdomen: Normal bowel sounds, Soft Extremities: No clubbing, No cyanosis, No edema Skin: No significant lesion Labs LABS Laboratory Tests Test 01/06/18 08:21 01/06/18 11:59 01/06/18 16:49 01/06/18 20:59 Glucose (Fingerstick) 129 mg/dL (70-99) 158 mg/dL (70-99) 194 mg/dL (70-99) 167 mg/dL (70-99) Test 01/07/18 04:50 01/07/18 07:33 White Blood Count 7.0 x10^3/uL (4.0-11.0) Red Blood Count 4.11 x10^6/uL (3.50-5.40) Hemoglobin 10.9 g/dL (12.0-15.5) Hematocrit 32.5 % (36.0-47.0) Mean Corpuscular Volume 79 fL (79-100) Mean Corpuscular Hemoglobin 27 pg (25-35) Mean Corpuscular Hemoglobin Concent 34 g/dL (31-37) Red Cell Distribution Width 14.6 % (11.5-14.5) Platelet Count 212 x10^3/uL (140-400) Neutrophils (%) (Auto) 49 % (31-73) Lymphocytes (%) (Auto) 33 % (24-48) Monocytes (%) (Auto) 9 % (0-9) Eosinophils (%) (Auto) 9 % (0-3) Basophils (%) (Auto) 1 % (0-3) Neutrophils # (Auto) 3.5 x10^3uL (1.8-7.7) Lymphocytes # (Auto) 2.3 x10^3/uL (1.0-4.8) Monocytes # (Auto) 0.6 x10^3/uL (0.0-1.1) Eosinophils # (Auto) 0.6 x10^3/uL (0.0-0.7) Basophils # (Auto) 0.1 x10^3/uL (0.0-0.2) Sodium Level 143 mmol/L (136-145) Potassium Level 3.6 mmol/L (3.5-5.1) Chloride Level 108 mmol/L (98-107) Carbon Dioxide Level 26 mmol/L (21-32) Anion Gap 9 (6-14) Blood Urea Nitrogen 16 mg/dL (7-20) Creatinine 1.0 mg/dL (0.6-1.0) Estimated GFR (Cockcroft-Gault) 53.9 Glucose Level 128 mg/dL (70-99) Calcium Level 9.4 mg/dL (8.5-10.1) Glucose (Fingerstick) 115 mg/dL (70-99) Assessment and Plan Assessmemt and Plan Problems Medical Problems: (1) Fever Status: Acute (2) Lactic acidosis Status: Acute (3) Tachycardia Status: Acute Comment Review of Relevant I have reviewed the following items jovita (where applicable) has been applied. Labs Laboratory Tests Test 01/05/18 08:20 01/05/18 08:30 01/05/18 09:27 01/05/18 09:30 Influenza Type A Antigen Negative (NEGATIVE) Influenza Type B Antigen Negative (NEGATIVE) White Blood Count 10.1 x10^3/uL (4.0-11.0) Red Blood Count 4.97 x10^6/uL (3.50-5.40) Hemoglobin 13.4 g/dL (12.0-15.5) Hematocrit 39.9 % (36.0-47.0) Mean Corpuscular Volume 80 fL (79-100) Mean Corpuscular Hemoglobin 27 pg (25-35) Mean Corpuscular Hemoglobin Concent 34 g/dL (31-37) Red Cell Distribution Width 14.8 % (11.5-14.5) Platelet Count 249 x10^3/uL (140-400) Neutrophils (%) (Auto) 89 % (31-73) Lymphocytes (%) (Auto) 3 % (24-48) Monocytes (%) (Auto) 4 % (0-9) Eosinophils (%) (Auto) 4 % (0-3) Basophils (%) (Auto) 1 % (0-3) Neutrophils # (Auto) 9.0 x10^3uL (1.8-7.7) Lymphocytes # (Auto) 0.3 x10^3/uL (1.0-4.8) Monocytes # (Auto) 0.4 x10^3/uL (0.0-1.1) Eosinophils # (Auto) 0.4 x10^3/uL (0.0-0.7) Basophils # (Auto) 0.0 x10^3/uL (0.0-0.2) Segmented Neutrophils % 89 % (35-66) Band Neutrophils % 2 % (0-9) Lymphocytes % 2 % (24-48) Monocytes % 3 % (0-10) Eosinophils % 4 % (0-5) Platelet Estimate Adequate (ADEQUATE) Lactic Acid Level 5.1 mmol/L (0.4-2.0) Troponin I Quantitative < 0.017 ng/mL (0.000-0.055) Urine Collection Type Unknown Urine Color Yellow Urine Clarity Clear Urine pH 7.5 Urine Specific Banks 1.015 Urine Protein 30 mg/dL (NEG-TRACE) Urine Glucose (UA) Negative mg/dL (NEG) Urine Ketones (Stick) Trace mg/dL (NEG) Urine Blood Negative (NEG) Urine Nitrite Negative (NEG) Urine Bilirubin Negative (NEG) Urine Urobilinogen Dipstick 0.2 mg/dL (0.2 mg/dL) Urine Leukocyte Esterase Negative (NEG) Urine RBC 3-5 /HPF (0-2) Urine WBC Occ /HPF (0-4) Urine Squamous Epithelial Cells Occ /LPF Urine Bacteria Few /HPF (0-FEW) Urine Hyaline Casts Occasional /HPF Sodium Level 140 mmol/L (136-145) Potassium Level 4.0 mmol/L (3.5-5.1) Chloride Level 101 mmol/L (98-107) Carbon Dioxide Level 26 mmol/L (21-32) Anion Gap 13 (6-14) Blood Urea Nitrogen 23 mg/dL (7-20) Creatinine 1.3 mg/dL (0.6-1.0) Estimated GFR (Cockcroft-Gault) 39.8 BUN/Creatinine Ratio 18 (6-20) Glucose Level 198 mg/dL (70-99) Calcium Level 10.0 mg/dL (8.5-10.1) Total Bilirubin 0.5 mg/dL (0.2-1.0) Aspartate Amino Transf (AST/SGOT) 20 U/L (15-37) Alanine Aminotransferase (ALT/SGPT) 25 U/L (14-59) Alkaline Phosphatase 72 U/L (46-116) Total Protein 8.1 g/dL (6.4-8.2) Albumin 4.0 g/dL (3.4-5.0) Albumin/Globulin Ratio 1.0 (1.0-1.7) Test 01/05/18 12:20 01/05/18 16:50 01/05/18 21:26 01/06/18 05:00 Lactic Acid Level 2.1 mmol/L (0.4-2.0) 2.5 mmol/L (0.4-2.0) Glucose (Fingerstick) 100 mg/dL (70-99) White Blood Count 6.8 x10^3/uL (4.0-11.0) Red Blood Count 4.26 x10^6/uL (3.50-5.40) Hemoglobin 11.4 g/dL (12.0-15.5) Hematocrit 33.8 % (36.0-47.0) Mean Corpuscular Volume 79 fL (79-100) Mean Corpuscular Hemoglobin 27 pg (25-35) Mean Corpuscular Hemoglobin Concent 34 g/dL (31-37) Red Cell Distribution Width 14.7 % (11.5-14.5) Platelet Count 201 x10^3/uL (140-400) Neutrophils (%) (Auto) 62 % (31-73) Lymphocytes (%) (Auto) 22 % (24-48) Monocytes (%) (Auto) 8 % (0-9) Eosinophils (%) (Auto) 8 % (0-3) Basophils (%) (Auto) 1 % (0-3) Neutrophils # (Auto) 4.2 x10^3uL (1.8-7.7) Lymphocytes # (Auto) 1.5 x10^3/uL (1.0-4.8) Monocytes # (Auto) 0.5 x10^3/uL (0.0-1.1) Eosinophils # (Auto) 0.5 x10^3/uL (0.0-0.7) Basophils # (Auto) 0.0 x10^3/uL (0.0-0.2) Sodium Level 142 mmol/L (136-145) Potassium Level 3.0 mmol/L (3.5-5.1) Chloride Level 105 mmol/L (98-107) Carbon Dioxide Level 27 mmol/L (21-32) Anion Gap 10 (6-14) Blood Urea Nitrogen 14 mg/dL (7-20) Creatinine 0.7 mg/dL (0.6-1.0) Estimated GFR (Cockcroft-Gault) 81.4 Glucose Level 124 mg/dL (70-99) Calcium Level 9.5 mg/dL (8.5-10.1) Creatine Kinase 82 U/L (26-192) Test 01/06/18 08:21 01/06/18 11:59 01/06/18 16:49 01/06/18 20:59 Glucose (Fingerstick) 129 mg/dL (70-99) 158 mg/dL (70-99) 194 mg/dL (70-99) 167 mg/dL (70-99) Test 01/07/18 04:50 01/07/18 07:33 White Blood Count 7.0 x10^3/uL (4.0-11.0) Red Blood Count 4.11 x10^6/uL (3.50-5.40) Hemoglobin 10.9 g/dL (12.0-15.5) Hematocrit 32.5 % (36.0-47.0) Mean Corpuscular Volume 79 fL (79-100) Mean Corpuscular Hemoglobin 27 pg (25-35) Mean Corpuscular Hemoglobin Concent 34 g/dL (31-37) Red Cell Distribution Width 14.6 % (11.5-14.5) Platelet Count 212 x10^3/uL (140-400) Neutrophils (%) (Auto) 49 % (31-73) Lymphocytes (%) (Auto) 33 % (24-48) Monocytes (%) (Auto) 9 % (0-9) Eosinophils (%) (Auto) 9 % (0-3) Basophils (%) (Auto) 1 % (0-3) Neutrophils # (Auto) 3.5 x10^3uL (1.8-7.7) Lymphocytes # (Auto) 2.3 x10^3/uL (1.0-4.8) Monocytes # (Auto) 0.6 x10^3/uL (0.0-1.1) Eosinophils # (Auto) 0.6 x10^3/uL (0.0-0.7) Basophils # (Auto) 0.1 x10^3/uL (0.0-0.2) Sodium Level 143 mmol/L (136-145) Potassium Level 3.6 mmol/L (3.5-5.1) Chloride Level 108 mmol/L (98-107) Carbon Dioxide Level 26 mmol/L (21-32) Anion Gap 9 (6-14) Blood Urea Nitrogen 16 mg/dL (7-20) Creatinine 1.0 mg/dL (0.6-1.0) Estimated GFR (Cockcroft-Gault) 53.9 Glucose Level 128 mg/dL (70-99) Calcium Level 9.4 mg/dL (8.5-10.1) Glucose (Fingerstick) 115 mg/dL (70-99) Laboratory Tests Test 01/06/18 08:21 01/06/18 11:59 01/06/18 16:49 01/06/18 20:59 Glucose (Fingerstick) 129 mg/dL (70-99) 158 mg/dL (70-99) 194 mg/dL (70-99) 167 mg/dL (70-99) Test 01/07/18 04:50 01/07/18 07:33 White Blood Count 7.0 x10^3/uL (4.0-11.0) Red Blood Count 4.11 x10^6/uL (3.50-5.40) Hemoglobin 10.9 g/dL (12.0-15.5) Hematocrit 32.5 % (36.0-47.0) Mean Corpuscular Volume 79 fL (79-100) Mean Corpuscular Hemoglobin 27 pg (25-35) Mean Corpuscular Hemoglobin Concent 34 g/dL (31-37) Red Cell Distribution Width 14.6 % (11.5-14.5) Platelet Count 212 x10^3/uL (140-400) Neutrophils (%) (Auto) 49 % (31-73) Lymphocytes (%) (Auto) 33 % (24-48) Monocytes (%) (Auto) 9 % (0-9) Eosinophils (%) (Auto) 9 % (0-3) Basophils (%) (Auto) 1 % (0-3) Neutrophils # (Auto) 3.5 x10^3uL (1.8-7.7) Lymphocytes # (Auto) 2.3 x10^3/uL (1.0-4.8) Monocytes # (Auto) 0.6 x10^3/uL (0.0-1.1) Eosinophils # (Auto) 0.6 x10^3/uL (0.0-0.7) Basophils # (Auto) 0.1 x10^3/uL (0.0-0.2) Sodium Level 143 mmol/L (136-145) Potassium Level 3.6 mmol/L (3.5-5.1) Chloride Level 108 mmol/L (98-107) Carbon Dioxide Level 26 mmol/L (21-32) Anion Gap 9 (6-14) Blood Urea Nitrogen 16 mg/dL (7-20) Creatinine 1.0 mg/dL (0.6-1.0) Estimated GFR (Cockcroft-Gault) 53.9 Glucose Level 128 mg/dL (70-99) Calcium Level 9.4 mg/dL (8.5-10.1) Glucose (Fingerstick) 115 mg/dL (70-99) Microbiology 01/05/18 Blood Culture - Preliminary, Resulted NO GROWTH AFTER 1 DAY Medications Current Medications Sodium Chloride 1,720 ml @ 1,720 mls/hr 1X ONCE IV Last administered on 01/05at 09:00; Start 01/05/18 at 09:00; Stop 01/05/18 at 09:59; Status DC Sodium Chloride 1,000 ml @ 100 mls/hr Q10H IV Last administered on 01/05/18at 09:37; Start 01/05/18 at 08:46; Stop 01/05/18 at 18:45; Status DC Ceftriaxone Sodium 50 ml @ 100 mls/hr 1X ONCE IV Last administered on at 09:37; Start 01/05/18 at 09:00; Stop 01/05/18 at 09:29; Status DC Acetaminophen (Tylenol) 1,000 mg 1X ONCE PO Last administered on 01/05/18at 09 :37; Start 01/05/18 at 09:15; Stop 01/05/18 at 09:16; Status DC Ondansetron HCl (Zofran) 4 mg PRN Q8HRS PRN IV NAUSEA/VOMITING; Start at 12:15; Stop 01/06/18 at 12:14; Status DC Morphine Sulfate (Morphine Sulfate) 2 mg PRN Q2HR PRN IV PAIN; Start 01/05/18 at 12:15; Stop 01/06/18 at 12:14; Status DC Acetaminophen (Tylenol) 650 mg PRN Q4HRS PRN PO FEVER Last administered on at 23:27; Start 01/05/18 at 12:15; Stop 01/06/18 at 12:14; Status DC Sodium Chloride 1,000 ml @ 125 mls/hr 1X ONCE IV Last administered on at 18:35; Start 01/05/18 at 12:15; Stop 01/05/18 at 20:14; Status DC Dextrose (Dextrose 50%-Water Syringe) 12.5 gm PRN Q15MIN PRN IV SEE COMMENTS; Start 01/05/18 at 12:15 Levofloxacin/ Dextrose 100 ml @ 100 mls/hr Q24H IV ; Start 01/05/18 at 21:00; Status UNV Ceftriaxone Sodium 1 gm/ Dextrose 50 ml @ 100 mls/hr Q24H IV ; Start 01/05/18 at 21:00; Status UNV Ceftriaxone Sodium (Rocephin) 1 gm Q24H IVP Last administered on 01/06/18at 09: 49; Start 01/06/18 at 09:00 Aspirin (Asa Aspirin) 325 mg DAILY08 PO Last administered on 01/06/18at 18:38 ; Start 01/06/18 at 18:00 Flecainide Acetate (Tambocor) 50 mg DAILY08 PO Last administered on 01/07/18 08:00; Start 01/06/18 at 18:00 Glipizide (Glucotrol) 2.5 mg DAILYAC PO Last administered on 01/07/18 07:59; Start 01/06/18 at 18:00 Losartan Potassium (Cozaar) 50 mg DAILY PO Last administered on 01/06/18at 18:37 ; Start 01/06/18 at 18:00 Metoprolol Succinate (Toprol Xl) 25 mg DAILY PO Last administered on 01/06/18 18:40; Start 01/06/18 at 18:00 Gabapentin (Neurontin) 300 mg TID PO Last administered on 01/06/18 20:41; Start 01/06/18 at 21:00 Levothyroxine Sodium (Synthroid) 125 mcg DAILY06 PO Last administered on 06:12; Start 01/07/18 at 06:00 Magnesium Oxide (Magnesium Oxide) 400 mg DAILY PO Last administered on at 18:38; Start 01/06/18 at 18:00 Metformin HCl (Glucophage) 1,000 mg BIDWMEALS PO Last administered on 08:00; Start 01/06/18 at 18:00 Simvastatin (Zocor) 40 mg QHS PO Last administered on 01/06/18 20:41; Start 01/06/18 at 21:00 Pantoprazole Sodium (Protonix) 40 mg DAILYAC PO Last administered on 01/07/18 07:59; Start 01/06/18 at 18:00 Diphenhydramine HCl (Benadryl) 50 mg PRN QHS PRN PO INSOMNIA Last administered on 01/06/18 20:41; Start 01/06/18 at 18:00 Tramadol HCl (Ultram) 50 mg PRN Q6HRS PRN PO PAIN Last administered on 08:01; Start 01/06/18 at 18:00 Enalaprilat (Vasotec Inj) 1.25 mg PRN Q4HRS PRN IVP HYPERTENSION, SEE COMMENTS Last administered on 01/06/18at 21:52; Start 01/06/18 at 21:30 Active Scripts Active Magnesium (Magnesium Oxide) 400 Mg Capsule 1 Cap PO DAILY [Pantoprazole] 40 MG Tablet.dr 40 Mg PO DAILYAC 30 Days Cozaar (Losartan Potassium) 50 Mg Tablet 50 Mg PO DAILY 30 Days Metoprolol Succinate ( Xl ) (Metoprolol Succinate) 25 Mg Tab.er.24h 25 Mg PO DAILY 30 Days Reported Gabapentin 300 Mg Capsule 300 Mg PO TID Metformin Hcl 1,000 Mg Tablet 1,000 Mg PO BIDWMEALS Glipizide 5 Mg Tablet 2.5 Mg PO DAILY Levothyroxine Sodium 125 Mcg Tablet 125 Mcg PO DAILYAC Simvastatin 40 Mg Tablet 40 Mg PO HS Flecainide Acetate 50 Mg Tablet 50 Mg PO Aspirin 325 Mg Tablet 325 Mg PO Vitals/I & O Vital Sign - Last 24 Hours 01/06/18 01/06/18 01/06/18 01/06/18 11:00 15:00 18:37 18:40 Temp 97.6 97.6 Pulse 72 76 76 76 Resp 18 18 B/P (MAP) 149/86 (107) 186/86 (119) 186/86 186/86 Pulse Ox 97 95 O2 Delivery Room Air Room Air 01/06/18 01/06/18 01/06/18 01/06/18 18:40 18:41 19:00 19:41 Temp 98.1 98.1 Pulse 76 73 Resp 16 18 B/P (MAP) 186/86 180/81 (114) Pulse Ox 95 98 95 O2 Delivery Nasal Cannula Room Air Room Air O2 Flow Rate 2.0 01/06/18 01/06/18 01/06/18 01/07/18 20:08 21:52 23:00 03:00 Temp 98.1 97.3 98.1 97.3 Pulse 69 61 59 Resp 18 18 B/P (MAP) 191/78 165/73 (103) 164/70 (101) Pulse Ox 97 95 O2 Delivery Room Air Room Air Room Air 01/07/18 01/07/18 08:00 08:01 Pulse 56 Resp 16 B/P (MAP) 152/60 O2 Delivery Room Air Intake and Output 01/06/18 01/06/18 01/07/18 15:00 23:00 07:00 Intake Total 110 ml 390 ml 360 ml Balance 110 ml 390 ml 360 ml BRUCE SANTORO MD Jan 07, 2018 08:17
[2018-01-07] MEDS ORDERED: POTASSIUM CHLORIDE 20 MEQ TABLET.ER. PO ONE (08:30)
[2018-01-07] MEDS: cefTRIAXone IV Push 1 GM VIAL. IVP SCH (09:46)
[2018-01-07] MEDS: MAGNESIUM OXIDE 400 MG TABLET PO SCH (09:47)
[2018-01-07] MEDS: GABAPENTIN 300 MG CAPSULE. PO SCH (09:47)
[2018-01-07] MEDS: LOSARTAN POTASSIUM 50 MG TABLET. PO SCH (09:47)
[2018-01-07] MEDS: METOPROLOL SUCC 24HR ER 25 MG TAB.ER.24H. PO SCH (09:47)
[2018-01-07 11:00] VITALS: BP 179/79
[2018-01-07] MEDS: diphenhydrAMINE HCL 25 MG CAPSULE PO PRN (11:28)
--- NOTE | 2018-01-07 11:38 | PDOC ---
Infectious Disease Note Subjective Subjective Feeling better Slept well Legs feel little bit "rubbery". Still ache but less and ambulated No further fevers last 24 hours Denies chills/aches Eating ok but doesn't like the food ROS ROS per HPI otherwise neg Vital Sign Vital Signs Vital Signs Date Time Temp Pulse Resp B/P (MAP) Pulse Ox O2 Delivery O2 Flow Rate FiO2 01/07/18 09:47 56 152/60 01/07/18 09:01 16 Room Air 01/07/18 07:00 98.1 92 98.1 01/06/18 18:41 2.0 Physical Exam PHYSICAL EXAM GENERAL: Sitting on the side of the bed, alert, relaxed appearance HEENT: Pupils equally round, normal conjunctivae. Oral cavity, pharynx pink and moist. NECK: Supple. LUNGS: Clear to auscultation. HEART: S1, S2. ABDOMEN: Obese, bowel sounds active, soft, nontender. EXTREMITIES: No gross edema or cyanosis. SKIN: Warm without rash. NEUROLOGIC: Alert and oriented x 3. Gross movements intact. Labs Lab Laboratory Tests Test 01/06/18 11:59 01/06/18 16:49 01/06/18 20:59 01/07/18 04:50 Glucose (Fingerstick) 158 mg/dL (70-99) 194 mg/dL (70-99) 167 mg/dL (70-99) White Blood Count 7.0 x10^3/uL (4.0-11.0) Red Blood Count 4.11 x10^6/uL (3.50-5.40) Hemoglobin 10.9 g/dL (12.0-15.5) Hematocrit 32.5 % (36.0-47.0) Mean Corpuscular Volume 79 fL (79-100) Mean Corpuscular Hemoglobin 27 pg (25-35) Mean Corpuscular Hemoglobin Concent 34 g/dL (31-37) Red Cell Distribution Width 14.6 % (11.5-14.5) Platelet Count 212 x10^3/uL (140-400) Neutrophils (%) (Auto) 49 % (31-73) Lymphocytes (%) (Auto) 33 % (24-48) Monocytes (%) (Auto) 9 % (0-9) Eosinophils (%) (Auto) 9 % (0-3) Basophils (%) (Auto) 1 % (0-3) Neutrophils # (Auto) 3.5 x10^3uL (1.8-7.7) Lymphocytes # (Auto) 2.3 x10^3/uL (1.0-4.8) Monocytes # (Auto) 0.6 x10^3/uL (0.0-1.1) Eosinophils # (Auto) 0.6 x10^3/uL (0.0-0.7) Basophils # (Auto) 0.1 x10^3/uL (0.0-0.2) Sodium Level 143 mmol/L (136-145) Potassium Level 3.6 mmol/L (3.5-5.1) Chloride Level 108 mmol/L (98-107) Carbon Dioxide Level 26 mmol/L (21-32) Anion Gap 9 (6-14) Blood Urea Nitrogen 16 mg/dL (7-20) Creatinine 1.0 mg/dL (0.6-1.0) Estimated GFR (Cockcroft-Gault) 53.9 Glucose Level 128 mg/dL (70-99) Calcium Level 9.4 mg/dL (8.5-10.1) Test 01/07/18 07:33 Glucose (Fingerstick) 115 mg/dL (70-99) Micro Microbiology 01/05/18 Blood Culture - Preliminary, Resulted NO GROWTH AFTER 2 DAY Objective Assessment Lactic acidosis - better ? metformin Fever - better h/o recent UTI -Took one dose abx OP -Followed by urology for recurrent UTIs Multiple abx allergies: PCN, can't remember; cipro & sulfa -itching DM A-fib HTN Plan Plan of Care Clinically improving CK 82 Discontinue Rocephin BC neg so far Supportive care D/w D/w Dr. Paulino Noyola to d/c home Attending Co-Sign Attending Co-Sign The patient was seen and interviewed as well as examined at the bedside. The chart was reviewed. The case was discussed. Agree with the plan of care. STEFANIE ABDULLAHI APRN Jan 07, 2018 11:38 HEIDI BECK MD Jan 07, 2018 13:29
[2018-01-07] MEDS ORDERED: ENALAPRILAT 1.25 MG/ML VIAL. IVP PRN (13:00)
[2018-01-07] MEDS ORDERED: SITA50TA PO (13:17)
--- NOTE | 2018-01-11 10:33 | PDOC3 ---
Discharge Summary Visit Information Date of Admission: Jan 05, 2018 Date of Discharge: Jan 07, 2018 Admitting Diagnosis: Lactic acidosis, encephalopathy Final Diagnosis Problems Medical Problems: (1) Fever Status: Acute (2) Lactic acidosis Status: Acute (3) Tachycardia Status: Acute Brief Hospital Course Allergies Allergies Coded Allergies Type Severity Reaction Last Updated Verified Penicillins Allergy Intermediate 11/19/17 Yes Sulfa (Sulfonamide Antibiotics) Allergy Intermediate rash 11/19/17 Yes ciprofloxacin Allergy Intermediate Itching 01/06/18 Yes latex Allergy Mild sneezing 11/19/17 Yes Egg Derived Adverse Reaction Unknown 01/05/18 Yes Brief Hospital Course Admitted for fever, lactic acidosis and confusion from home, lives with her . Improved with antibiotics, ID consultation, fluids. Had 2 additional doses of rocephin in house, changed from metformin to Januvia for her lactic acidosis, improved and sent home with family care. ASSESSMENT AND PLAN: sepsis Fever acute encephalo[ailyn DM A-fib HTN Leg pain hypokalemia admitted. IV Levaquin, IV fluids, home meds. blood cult consultation Infectious Disease sq lovenox dvt prophylaxis Discharge Information Condition at Discharge: Improved Follow Up: Weeks Disposition/Orders: D/C to Home Scheduled Gabapentin (Gabapentin) 300 Mg Capsule, 300 MG PO TID, (Reported) Entered as Reported by: MAREK MARTINEZ on 11/19/17 0615 Last Action: Converted on 01/06/181711 by SLADE ZAPATA MD Glipizide (Glipizide) 5 Mg Tablet, 2.5 MG PO DAILY, (Reported) Entered as Reported by: DONNY BARRAGAN on 10/28/17 1323 Last Action: Continued on 01/06/181711 by SLADE ZAPATA MD Levothyroxine Sodium (Levothyroxine Sodium) 125 Mcg Tablet, 125 MCG PO DAILYAC for THYROID SUPPLEMENT, #30 Ref 0 (Reported) Entered as Reported by: VIOLETA VAIL on 05/21/14 1434 Last Action: Converted on 01/06/181711 by SLADE ZAPATA MD Losartan Potassium (Cozaar) 50 Mg Tablet, 50 MG PO DAILY for 30 Days, #30 Prescribed by: ANNA MARIE KHAN MD on 10/29/17 1058 Last Action: Continued on 01/06/181711 by SLADE ZAPATA MD Magnesium Oxide (Magnesium) 400 Mg Capsule, 1 CAP PO DAILY, #30 Ref 1 Prescribed by: JACK CANAS on 11/08/17 1327 Last Action: Converted on 01/06/181711 by SLADE ZAPATA MD Metoprolol Succinate (Metoprolol Succinate ( Xl )) 25 Mg Tab.er.24h, 25 MG PO DAILY for 30 Days, #30 Prescribed by: ANNA MARIE KHAN MD on 10/29/17 1058 Last Action: Continued on 01/06/181711 by SLADE ZAPATA MD Simvastatin (Simvastatin) 40 Mg Tablet, 40 MG PO HS for FOR CHOLESTEROL, #30 Ref 0 (Reported) Entered as Reported by: VIOLETA VAIL on 05/21/141431 Last Action: Converted on 01/06/181711 by SLADE ZAPATA MD Sitagliptin Phosphate (Januvia) 50 Mg Tablet, 1 TAB PO DAILY for DM, #30 Ref 0 Prescribed by: BRUCE SANTORO MD on 01/07/18 1317 [Pantoprazole] 40 MG TABLET.DR, 40 MG PO DAILYAC for 30 Days Prescribed by: ANNA MARIE KHAN MD on 10/29/17 1058 Last Action: Converted on 01/06/181711 by SLADE ZAPATA MD Miscellaneous Medications Aspirin (Aspirin) 325 Mg Tablet, 325 MG PO, (Reported) Entered as Reported by: VIOLETA VAIL on 05/21/14 143 Last Action: Continued on 01/06/181711 by SLADE ZAPATA MD Flecainide Acetate (Flecainide Acetate) 50 Mg Tablet, 50 MG PO, (Reported) Entered as Reported by: VIOLETA VAIL on 05/21/14 143 Last Action: Continued on 01/06/181711 by SLADE ZAPATA MD Discontinued Medications Metformin Hcl (Metformin Hcl) 1,000 Mg Tablet, 1,000 MG PO BIDWMEALS, (Reported) Entered as Reported by: DONNY BARRAGAN on 10/28/17 1323 Last Action: Converted on 01/06/181711 by MD MAUDE MENDIETA CHRISTOPHER S MD Jan 11, 2018 10:33
== END 2018-01-07 14:30 | disposition home or self-care (01) | DRG 871 ==
LOC: ER 08:31 → 5 NORTH 11:35
PROVIDERS: ADMIT Internal Medicine; ATTEND Internal Medicine
DX: A41.9 Sepsis, unspecified organism (principal); G93.41 Metabolic encephalopathy; D68.0 Von Willebrand disease; G93.40 Encephalopathy, unspecified; E03.9 Hypothyroidism, unspecified; E11.9 Type 2 diabetes mellitus without complications; E78.00 Pure hypercholesterolemia, unspecified; E78.5 Hyperlipidemia, unspecified; E87.6 Hypokalemia; I10 Essential (primary) hypertension; I48.91 Unspecified atrial fibrillation; G43.909 Migraine, unspecified, not intractable, without status migrainosus; Z87.440 Personal history of urinary (tract) infections; Z88.0 Allergy status to penicillin; Z88.1 Allergy status to other antibiotic agents; Z90.49 Acquired absence of other specified parts of digestive tract; Z90.710 Acquired absence of both cervix and uterus; Z79.899 Other long term (current) drug therapy; Z88.2 Allergy status to sulfonamides; Z88.8 Allergy status to other drugs, medicaments and biological substances; Z88.6 Allergy status to analgesic agent; Z91.012 Allergy to eggs; Z91.040 Latex allergy status; Z98.51 Tubal ligation status
CPT/HCPCS: 36415; 71045; 80048; 80053; 81001; 82550; 82962; 83605; 84484; 85007; 85025; 87040; 87804; 93005; 96361; 96365; J0690; J0696; J7030; J7040; Q0163; 99285-25

== ENCOUNTER 2018-01-13 22:32 | Emergency (ER) | payer BC ==
[~2018-01-13] VITALS: Ht 165.1 cm; Wt 86.2 kg
[~2018-01-13 22:32] MED LIST changes: +SITA50TA PO
[2018-01-13 23:16] LABS: BASO # 0.1 x10^3/uL (0.0-0.2); BASO % 1 % (0-3); EOS # 0.6 x10^3/uL (0.0-0.7); EOS % 6 % (0-3); HEMATOCRIT 35.3 % (36.0-47.0); HEMOGLOBIN 11.8 g/dL (12.0-15.5); LYMPH # 1.2 x10^3/uL (1.0-4.8); LYMPH % 14 % (24-48); MEAN CORPUSCULAR HEMOGLOBIN 26 pg (25-35); MEAN CORPUSCULAR HGB CONC 33 g/dL (31-37); MEAN CORPUSCULAR VOLUME 78 fL (79-100); MONO # 0.6 x10^3/uL (0.0-1.1); MONO % 7 % (0-9); NEUT # 6.6 x10^3uL (1.8-7.7); NEUT % 73 % (31-73); PLATELET COUNT 372 x10^3/uL (140-400); RED BLOOD COUNT 4.53 x10^6/uL (3.50-5.40); RED CELL DISTRIBUTION WIDTH 15.1 % (11.5-14.5); WHITE BLOOD COUNT 9.1 x10^3/uL (4.0-11.0)
[2018-01-13 23:17] LABS: BILIRUBIN,URINE NEGATIVE (NEG); CLARITY,URINE CLEAR; COLOR,URINE YELLOW; NITRITE,URINE NEGATIVE (NEG); PROTEIN,URINE NEGATIVE (NEG-TRACE); UROBILINOGEN,URINE 0.2 mg/dL (0.2 mg/dL)
[2018-01-13 23:24] LABS: CALCIUM 10.1 mg/dL (8.5-10.1); CREATININE 1.4 mg/dL (0.6-1.0); GFR 36.6; POTASSIUM 4.2 mmol/L (3.5-5.1)
[2018-01-13 23:25] LABS: BACTERIA,URINE FEW /HPF (0-FEW); RBC,URINE OCC /HPF (0-2); SQUAMOUS EPITHELIAL CELL,UR MANY /LPF
[2018-01-13 23:25] LABS: PROTHROMBIN TIME PATIENT 12.7 SEC (11.7-14.0)
[2018-01-13 23:30] LABS: ALBUMIN 3.6 g/dL (3.4-5.0); ALBUMIN/GLOBULIN RATIO 0.9 (1.0-1.7); TOTAL BILIRUBIN 0.4 mg/dL (0.2-1.0); TOTAL PROTEIN 7.4 g/dL (6.4-8.2)
[2018-01-13 23:47] VITALS: BP 112/63
[2018-01-13 23:47] LABS: INFLUENZA A PATIENT NEGATIVE (NEGATIVE); INFLUENZA B PATIENT NEGATIVE (NEGATIVE)
--- NOTE | 2018-01-14 00:06 | PHYS DOC ---
Past Medical History Past Medical History: A-Fib, Diabetes-Type II, High Cholesterol, Hypertension, Hyperthyroid, Migraines, UTI, Other Additional Past Medical Histor: SEPSIS Past Surgical History: Appendectomy, , Hysterectomy, Tonsillectomy, Tubal ligation, Other Additional Past Surgical Histo: adhesions, sinus, cysts, Von[place]rands dx Alcohol Use: None Drug Use: None Adult General Chief Complaint Chief Complaint: FEVER HPI HPI Patient is a 77 year old female who presents with cough and fever. This started this afternoon. Patient is concerned because she was recently discharged from the hospital with a urinary tract infection with sepsis. She is still on antibiotics for that but cannot recall which ones. Patient denies any difficulty breathing. Patient reports that her maximum temperature was 101.4. She took Tylenol at approximately 2100. She reports that she felt chills similar to prior to her admission for sepsis. [] Review of Systems Review of Systems Constitutional: See history of present illness[] Eyes: Denies change in visual acuity, redness, or eye pain [] HENT: Denies nasal congestion or sore throat [] Respiratory: Reports cough, denies shortness of breath [] Cardiovascular: No chest pain or palpitations[] GI: Denies abdominal pain, nausea, vomiting, bloody stools or diarrhea [] : Denies dysuria or hematuria [] Musculoskeletal: Denies back pain or joint pain [] Integument: Denies rash or skin lesions [] Neurologic: Denies headache, focal weakness or sensory changes [] Endocrine: Denies polyuria or polydipsia [] All other systems were reviewed and found to be within normal limits, except as documented in this note. Allergies Allergies Allergies Coded Allergies Type Severity Reaction Last Updated Verified Penicillins Allergy Intermediate 11/19/17 Yes Sulfa (Sulfonamide Antibiotics) Allergy Intermediate rash 11/19/17 Yes ciprofloxacin Allergy Intermediate Itching 01/06/18 Yes latex Allergy Mild sneezing 11/19/17 Yes Egg Derived Adverse Reaction Unknown 01/05/18 Yes Physical Exam Physical Exam Constitutional: Well developed, well nourished, no acute distress, non-toxic appearance. [] HENT: Normocephalic, atraumatic, bilateral external ears normal, oropharynx moist, no oral exudates, nose normal. [] Eyes: PERRLA, EOMI, conjunctiva normal, no discharge. [] Neck: Normal range of motion, no tenderness, supple, no stridor. [] Cardiovascular:Heart rate regular rhythm, no murmur [] Lungs & Thorax: Bilateral breath sounds clear to auscultation [] Abdomen: Bowel sounds normal, soft, no tenderness, no masses, no pulsatile masses. [] Skin: Warm, dry, no erythema, no rash. [] Back: No tenderness, no CVA tenderness. [] Extremities: No tenderness, no cyanosis, no clubbing, ROM intact, no edema. [] Neurologic: Alert and oriented X 3, normal motor function, normal sensory function, no focal deficits noted. [] Psychologic: Affect normal, judgement normal, mood normal. [] Current Patient Data Lab Values Laboratory Tests Test 01/13/18 22:45 01/13/18 22:50 Urine Collection Type Unknown Urine Color Yellow Urine Clarity Clear Urine pH 5.0 Urine Specific [place] 1.015 Urine Protein Negative mg/dL (NEG-TRACE) Urine Glucose (UA) Negative mg/dL (NEG) Urine Ketones (Stick) Negative mg/dL (NEG) Urine Blood Small (NEG) Urine Nitrite Negative (NEG) Urine Bilirubin Negative (NEG) Urine Urobilinogen Dipstick 0.2 mg/dL (0.2 mg/dL) Urine Leukocyte Esterase Trace (NEG) Urine RBC Occ /HPF (0-2) Urine WBC 1-4 /HPF (0-4) Urine Squamous Epithelial Cells Many /LPF Urine Bacteria Few /HPF (0-FEW) Urine Mucus Slight /LPF White Blood Count 9.1 x10^3/uL (4.0-11.0) Red Blood Count 4.53 x10^6/uL (3.50-5.40) Hemoglobin 11.8 g/dL (12.0-15.5) L Hematocrit 35.3 % (36.0-47.0) L Mean Corpuscular Volume 78 fL (79-100) L Mean Corpuscular Hemoglobin 26 pg (25-35) Mean Corpuscular Hemoglobin Concent 33 g/dL (31-37) Red Cell Distribution Width 15.1 % (11.5-14.5) H Platelet Count 372 x10^3/uL (140-400) Neutrophils (%) (Auto) 73 % (31-73) Lymphocytes (%) (Auto) 14 % (24-48) L Monocytes (%) (Auto) 7 % (0-9) Eosinophils (%) (Auto) 6 % (0-3) H Basophils (%) (Auto) 1 % (0-3) Neutrophils # (Auto) 6.6 x10^3uL (1.8-7.7) Lymphocytes # (Auto) 1.2 x10^3/uL (1.0-4.8) Monocytes # (Auto) 0.6 x10^3/uL (0.0-1.1) Eosinophils # (Auto) 0.6 x10^3/uL (0.0-0.7) Basophils # (Auto) 0.1 x10^3/uL (0.0-0.2) Prothrombin Time 12.7 SEC (11.7-14.0) Prothrombin Time INR 1.0 (0.8-1.1) Sodium Level 135 mmol/L (136-145) L Potassium Level 4.2 mmol/L (3.5-5.1) Chloride Level 96 mmol/L (98-107) L Carbon Dioxide Level 27 mmol/L (21-32) Anion Gap 12 (6-14) Blood Urea Nitrogen 27 mg/dL (7-20) H Creatinine 1.4 mg/dL (0.6-1.0) H Estimated GFR (Cockcroft-Gault) 36.6 BUN/Creatinine Ratio 19 (6-20) Glucose Level 174 mg/dL (70-99) H Lactic Acid Level 1.1 mmol/L (0.4-2.0) Calcium Level 10.1 mg/dL (8.5-10.1) Total Bilirubin 0.4 mg/dL (0.2-1.0) Aspartate Amino Transferase (AST) 19 U/L (15-37) Alanine Aminotransferase (ALT) 54 U/L (14-59) Alkaline Phosphatase 114 U/L (46-116) Troponin I Quantitative < 0.017 ng/mL (0.000-0.055) Total Protein 7.4 g/dL (6.4-8.2) Albumin 3.6 g/dL (3.4-5.0) Albumin/Globulin Ratio 0.9 (1.0-1.7) L Laboratory Tests 01/13/18 22:50 Laboratory Tests 01/13/18 22:50 EKG EKG EKG shows normal sinus rhythm, leftward axis at -26, QTc of 452 ms, no ST elevation.[] Radiology/Procedures Radiology/Procedures Chest x-ray showed no infiltrate, no effusion, no pneumothorax[] Course & Med Decision Making Course & Med Decision Making Pertinent Labs and Imaging studies reviewed. (See chart for details) ED course: Patient arrived, was placed in bed, in tolerate exam well. Patient was transported to and from [facility] with any complications. After return of lab and x-ray findings discussion was made with the family regarding the results and the plan for. All questions were answered. Decision making: There does not appear to be any evidence of sepsis, no pneumonia, no pneumothorax, patient is negative for influenza, and is afebrile while in the emergency department.[] Dragon Disclaimer Dragon Disclaimer This electronic medical record was generated, in whole or in part, using a voice recognition dictation system. Departure Departure Impression: Primary Impression: Febrile illness Disposition: HOME, SELF-CARE Condition: GOOD Referrals: CHRIS MURPHY MD (PCP) Follow-up in 2 days Patient Instructions: Fever, Adult Additional Instructions: Follow-up with your regular doctor. Drink plenty of fluids. Return to the ER if worsening fever, worsening cough, difficulty breathing, or any other concerns. KEVIN CHAU DO Jan 14, 2018 00:06
--- NOTE | 2018-01-14 00:13 | RAD ---
CHEST PA LATERAL History: FEVER Comparison: AP chest January 05, 2018. Findings: Atherosclerotic and mildly tortuous thoracic aorta. The cardiac size is normal. Pulmonary vasculature is normal. The lungs are clear. No pleural effusion or pneumothorax is seen. There is no acute bone abnormality. Degenerative endplate spurring of the thoracic spine. IMPRESSION: No acute cardiopulmonary process. Electronically signed by: Matthew Jackson MD (01/14/2018 12:09 AM) [facility]
--- NOTE | 2018-01-14 08:27 | EKG ---
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
== END 2018-01-14 00:30 | disposition home or self-care (01) ==
LOC: ER 22:32
DX: R50.9 Fever, unspecified (principal); R05 Cough; E78.00 Pure hypercholesterolemia, unspecified; G43.909 Migraine, unspecified, not intractable, without status migrainosus; I48.91 Unspecified atrial fibrillation; E11.9 Type 2 diabetes mellitus without complications; I10 Essential (primary) hypertension; Z88.0 Allergy status to penicillin; Z88.1 Allergy status to other antibiotic agents; Z88.2 Allergy status to sulfonamides; Z91.040 Latex allergy status; Z91.012 Allergy to eggs
CPT/HCPCS: 36415; 71046; 80053; 81001; 83605; 84484; 85025; 85610; 87040; 87086; 87804; 93005; 99285-25

== ENCOUNTER 2019-11-25 15:23 | Emergency (ER) | payer BC ==
[~2019-11-25] VITALS: Ht 162.6 cm; Wt 93.6 kg
[~2019-11-25 15:23] MED LIST changes: +ACET500T68 PO; +CALC200T23 PO; +CLOP75TA PO; +DOXY100T PO; -GABA-586 PO; +GABA300C18 PO; +GABA600T7 PO; +GLIP5TAB22 PO; +HYDR-2145 PO; +HYDR-3164 PO; -HYDR-971 PO; -HYDR12.53 PO; +HYDR12.575 PO; -HYDR25TA9 PO; +INSU100I13 SQ; +LEVO112T49 PO; +LOSA-73 PO; +LOSA100T14 PO; -LOSA100T7 PO; -LOSA50TA2 PO; +NITR50CA11 PO; +SIMV40TA18 PO; -SIMV40TA3 PO; +SITA100T PO; +TEMA7.5C2 PO
--- NOTE | 2019-11-25 16:09 | PHYS DOC ---
Past Medical History Past Medical History: A-Fib, Diabetes-Type II, High Cholesterol, Hypertension, Hyperthyroid, Migraines, UTI, Other Additional Past Medical Histor: SEPSIS Past Surgical History: Appendectomy, , Hysterectomy, Tonsillectomy, Tubal ligation, Other Additional Past Surgical Histo: adhesions, sinus, cysts, [place] dx Smoking Status: Never Smoker Alcohol Use: None Drug Use: None General Adult EDM: Chief Complaint: HEADACHE HPI: HPI: The history was obtained from the patient. Patient is a 79-year-old female with PMH hypertension, hyperlipidemia, CVA who presents with a chief complaint of right-sided headache. Patient states symptoms began 2 hours prior to arrival. States it began while at rest. States she has intermittent sharp shooting pain from her right side of her head to her right neck. She denies any temporal pain. Denies any vision change. Denies any red eyes. Denies any eye pain. Denies vomiting. Denies fevers. States she has never experienced this headache before. Denies any syncope. Denies any chest pain or shortness of breath. Note she has a history of stroke years ago that presented with left upper extremity and left lower extremity numbness. She states she does have minor residual numbness but this has not worsened at this time. She denies any slurred speech. Denies any falls or trauma. Does take Plavix daily due to her history of stroke. Has not tried any medicine prior to arrival. Patient denies acute onset of headache reaching maximal intensity in under one hour. This is neither the worst headache that Patient has ever experienced, nor was the onset timed with exertional activity or trauma. Patient has not experienced any fever, unusual neck pain or stiffness, syncope, or near syncope. Patient denies numbness, tingling, or weakness of the extremities. Patient also denies personal history of intracranial hemorrhage (including SAH), aneurysm, or AV malformation. Review of Systems: Review of Systems: Constitutional: Denies fever or chills. [] Eyes: Denies change in visual acuity. [] HENT: Denies nasal congestion or sore throat. [] Respiratory: Denies cough or shortness of breath. [] Cardiovascular: Denies chest pain or edema. [] GI: Denies abdominal pain, nausea, vomiting, bloody stools or diarrhea. [] : Denies dysuria. [] Musculoskeletal: Denies back pain or joint pain. [] Integument: Denies rash. [] Neurologic: Positive for headache Endocrine: Denies polyuria or polydipsia. [] Lymphatic: Denies swollen glands. [] Psychiatric: Denies depression or anxiety. [] Heart Score: Risk Factors: Risk Factors: DM, Current or recent (<one month) smoker, HTN, HLP, family history of CAD, obesity. Risk Scores: Score 0 - 3: 2.5% MACE over next 6 weeks - Discharge Home Score 4 - 6: 20.3% MACE over next 6 weeks - Admit for Clinical Observation Score 7 - 10: 72.7% MACE over next 6 weeks - Early Invasive Strategies Allergies: Allergies: Allergies Coded Allergies Type Severity Reaction Last Updated Verified Penicillins Allergy Intermediate 11/19/17 Yes Sulfa (Sulfonamide Antibiotics) Allergy Intermediate rash 11/19/17 Yes ciprofloxacin Allergy Intermediate Itching 01/06/18 Yes latex Allergy Mild sneezing 11/19/17 Yes Egg Derived Adverse Reaction Unknown 01/05/18 Yes Physical Exam: PE: Constitutional: Well developed, well nourished, no acute distress, non-toxic appearance. [] HENT: Normocephalic, atraumatic, bilateral external ears normal, oropharynx moist, no oral exudates, nose normal. [] Eyes: PERRLA, EOMI, conjunctiva normal, no discharge. [] Neck: Normal range of motion, no tenderness, supple, no stridor. [] Cardiovascular:Heart rate regular rhythm, no murmur [] Lungs & Thorax: Bilateral breath sounds clear to auscultation [] Abdomen: soft, no tenderness, no masses, no pulsatile masses. [] Skin: Warm, dry, no erythema, no rash. [] Back: No tenderness, no CVA tenderness. [] Extremities: No tenderness, no cyanosis, no clubbing, ROM intact, no edema. [] Neurologic: Alert with intact cognitive function. No aphasia, dysarthria, or neglect. GCS 15. Pupils 3 mm briskly reactive b/l. No APD present. Cranial nerves 2-12 grossly intact; no facial asymmetry present, tongue midline, shoulder shrugging strength intact. Strength 5/5 and symmetric throughout. Light touch sensation intact throughout. Cerebellar testing appropriate without evidence of dysdiadochokinesia. DTR's 2+ in all 4 extremities. Negative pronator drift bilaterally. Gait normal Psychologic: Affect normal, judgement normal, mood normal. [] Current Patient Data: Labs: Laboratory Tests Test 11/25/19 16:00 White Blood Count 8.3 x10^3/uL Red Blood Count 5.01 x10^6/uL Hemoglobin 12.7 g/dL Hematocrit 38.1 % Mean Corpuscular Volume 76 fL Mean Corpuscular Hemoglobin 25 pg Mean Corpuscular Hemoglobin Concent 33 g/dL Red Cell Distribution Width 17.6 % Platelet Count 248 x10^3/uL Neutrophils (%) (Auto) 59 % Lymphocytes (%) (Auto) 29 % Monocytes (%) (Auto) 7 % Eosinophils (%) (Auto) 6 % Basophils (%) (Auto) 1 % Neutrophils # (Auto) 4.9 x10^3/uL Lymphocytes # (Auto) 2.4 x10^3/uL Monocytes # (Auto) 0.5 x10^3/uL Eosinophils # (Auto) 0.5 x10^3/uL Basophils # (Auto) 0.1 x10^3/uL Sodium Level 139 mmol/L Potassium Level 3.5 mmol/L Chloride Level 102 mmol/L Carbon Dioxide Level 31 mmol/L Anion Gap 6 Blood Urea Nitrogen 18 mg/dL Creatinine 1.0 mg/dL Estimated GFR (Cockcroft-Gault) 53.6 Glucose Level 119 mg/dL Calcium Level 9.5 mg/dL Current Medications Medications (Trade) Dose Ordered Sig/[place] Route PRN Reason Start Time Stop Time Status Last Admin Dose Admin Sodium Chloride 1,000 ml @ 1,000 mls/hr 1X ONCE IV 11/25/19 16:15 11/25/19 17:14 DC 11/25/19 16:30 Diphenhydramine HCl (Benadryl) 50 mg 1X ONCE IVP 11/25/19 16:15 11/25/19 16:18 DC 11/25/19 16:29 Prochlorperazine Edisylate (Compazine) 10 mg 1X ONCE IV 11/25/19 16:15 11/25/19 16:18 DC 11/25/19 16:29 Iohexol (Omnipaque 350 Mg/ml) 70 ml 1X ONCE IV 11/25/19 16:45 11/25/19 16:46 DC 11/25/19 16:45 Info (CONTRAST GIVEN -- Rx MONITORING) 1 each PRN DAILY PRN MC SEE COMMENTS 11/25/19 16:45 11/27/19 16:44 Vital Signs: Vital Signs Date Time Temp Pulse Resp B/P (MAP) Pulse Ox O2 Delivery O2 Flow Rate FiO2 11/25/19 16:26 67 96 11/25/19 16:01 73 98 11/25/19 15:31 73 98 11/25/19 15:25 97.9 73 18 196/88 (124) 98 Room Air 97.9 EKG: EKG: [] Radiology/Procedures: Radiology/Procedures: [facility] [address] [place] [address] IMAGING REPORT Signed PATIENT: THOMAS HOPKINS ACCOUNT: [id number] : 1940 LOCATION: ER AGE: 79 SEX: F EXAM STATUS: REG ER ORD. PHYSICIAN: DEREK MCFADDEN DO REASON: right sided RUIZ radiating to R neck. 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 Technique: After the intravenous administration of 100 cc of Isovue-370, contiguous, 0.625 mm axial sections were obtained through the upper chest, neck and head. Multiplanar 3-D MIP and volume rendered 3-D reconstructed images were obtained. One or more of the following individualized dose reduction techniques were utilized for this study: 1. Automated exposure control. 2. Adjustment of the mA and/or kV according to patient size. 3. Use of iterative reconstruction technique. Findings: Comparison is made to patient's CT scan of the head performed earlier today. Scattered atherosclerotic plaque formation seen involving the thoracic aortic arch and its branches. The origins of the brachiocephalic, left common carotid and left subclavian arteries from the thoracic aortic arch are patent. The origin of the right common carotid artery and both vertebral arteries are patent. The common carotid arteries are tortuous bilaterally but patent. Mild atheromatous/atherosclerotic plaque formation seen involving both carotid bifurcations. No hemodynamically significant stenosis is seen. The internal carotid arteries within the neck are tortuous but patent. The vertebral arteries are codominant. Both vertebral arteries demonstrate normal antegrade flow. No area stenosis or occlusion is seen. Intracranially, scattered atherosclerotic plaque formation is seen involving the cavernous portions of both internal carotid arteries. No hemodynamically significant stenosis or area of occlusion is seen. The basilar artery is patent. The anterior, middle and posterior cerebral arteries and their branches are within normal limits. No area of stenosis or occlusion is seen. No intracranial aneurysm is noted. The major dural venous sinuses are patent. No area of abnormal contrast enhancement is seen. No acute soft tissue abnormality is seen involving the neck. Degenerative changes are seen involving the uncovertebral and facet joints throughout the cervical disc spaces. Impression: 1. Mild atheromatous/atherosclerotic plaque formation is seen involving both carotid bifurcations. No hemodynamically significant stenosis is seen. 2. No intracranial stenosis or area of occlusion is seen. Stenosis calculation for CTA are based on measurement of the distal internal carotid artery diameter in accordance with the NASCET methodology. Electronically signed by: Khanh Childers MD (11/25/2019 5:19 PM) [id number] DICTATED and SIGNED BY: KHANH CHILDERS MD DATE: 11/25/19 1719 [facility] [address] [place] [address] IMAGING REPORT Signed PATIENT: THOMAS HOPKINS ACCOUNT: [id number] : 1940 LOCATION: ER AGE: 79 SEX: F EXAM STATUS: REG ER ORD. PHYSICIAN: DEREK MCFADDEN DO REASON: HEADACHE PROCEDURE: CT HEAD WO CONTRAST CT HEAD WO CONTRAST Clinical indications: Headache COMPARISON: August 17, 2018. Technique: Noncontrast axial cross sectional scanning of the head was performed. PQRS compliance Statement One or more of the following individualized dose reduction techniques were utilized for this study: 1. Automated exposure control 2. Adjustment of the mA and/or kV according to patient size 3. Use of iterative reconstruction technique Findings: No acute intracranial hemorrhage or midline shift or mass-effect or hydrocephalus or extra-axial fluid collection is seen. An old infarct is seen involving the head of the caudate nucleus and anterior basal ganglia on the right side. No new focal hypodense area or sulci effacement is seen to indicate an acute infarct or edema radiographically. No skull fracture or pneumocephalus is seen. No opacification of the mastoid sinuses or the middle ear cavities or the paranasal sinuses is seen. The maxillary sinuses are not completely seen in this study. Impression: No acute intracranial abnormality is seen. Electronically signed by: Keith Maxwell MD (11/25/2019 5:10 PM) [id number] DICTATED and SIGNED BY: KEITH MAXWELL MD DATE: 11/25/191709 [] Course & Med Decision Making: Course & Med Decision Making Pertinent Labs and Imaging studies reviewed. (See chart for details) [] Patient is a very pleasant 79-year-old female who presents with chief c omplaint of intermittent right head pain that began 2 hours prior to arrival while at rest. Noncontrast CT head imaging was obtained was unremarkable. CT angiogram of the head neck was obtained given she did report the pain occasionally radiated to her right neck. This was also unremarkable. Labs unremarkable. On repeat examination patient states her headache has been controlled well with medication in the emergency department. Given the symptoms were 2-hour prior to onset and I feel lumbar puncture is indicated. Furthermore low suspicion for emergent etiology regarding her headache including but not limited to infectious or hemorrhagic causes. Her repeat neurologic exam remains unchanged. Patient denies any vision changes in visual acuity was normal. No temporal tenderness. Overall low suspicion for temporal arteritis. I do feel she is appropriate for discharge home. Patient does feel comfortable with this. Return precautions discussed and understood. Instructed to follow-up with her primary care physician in the next 2 to 3 days. Stable for discharge home. Amira Disclaimer: Amira Disclaimer: This electronic medical record was generated, in whole or in part, using a voice recognition dictation system. Departure Departure Impression: Primary Impression: Headache Qualified Codes: R51 - Headache Disposition: 01 HOME, SELF-CARE Condition: STABLE Referrals: CHRIS MURPHY MD (PCP) Patient Instructions: General Headache Without Cause Justicifation of Admission Dx: Justifications for Admission: Justification of Admission Dx: N/A NIHSS Stroke Scale NIH Stroke Scale: NIH Stroke Scale Response (Comments) Value Level of Consciousness: 0 Alert/Responsive 0 LOC Questions: 0 Answers both correctly 0 LOC Commands: 0 Performs both tasks 0 Best Gaze: 0 Normal 0 Visual: 0 No visual loss 0 Facial Palsy: 0 Normal, symmetrical 0 Motor - Left Arm 0 No drift 0 Motor - Right Arm 0 No drift 0 Motor - Left Leg 0 No drift 0 Motor: Right Leg 0 No drift 0 Limb Ataxia: 0 Absent 0 Sensory: 0 No loss 0 Best Language: 0 Normal 0 Dysathria: 0 Normal 0 Extinction and Inattention: 0 Normal 0 Total 0 DEREK MCFADDEN DO Nov 25, 2019 16:09
[2019-11-25] MEDS ORDERED: IV NORMAL SALINE 1000ML BAG 1,000 ML IV ONE (16:15)
[2019-11-25] MEDS ORDERED: diphenhydrAMINE 50 MG/ML VIAL IVP ONE (16:15)
[2019-11-25] MEDS ORDERED: PROCHLORPERAZINE 10 MG/2 ML VIAL. IV ONE (16:15)
[2019-11-25 16:17] LABS: BASO # 0.1 x10^3/uL (0.0-0.2); BASO % 1 % (0-3); EOS # 0.5 x10^3/uL (0.0-0.7); EOS % 6 % (0-3); HEMATOCRIT 38.1 % (36.0-47.0); HEMOGLOBIN 12.7 g/dL (12.0-15.5); LYMPH # 2.4 x10^3/uL (1.0-4.8); LYMPH % 29 % (24-48); MEAN CORPUSCULAR HEMOGLOBIN 25 pg (25-35); MEAN CORPUSCULAR HGB CONC 33 g/dL (31-37); MEAN CORPUSCULAR VOLUME 76 fL (79-100); MONO # 0.5 x10^3/uL (0.0-1.1); MONO % 7 % (0-9); NEUT # 4.9 x10^3/uL (1.8-7.7); NEUT % 59 % (31-73); PLATELET COUNT 248 x10^3/uL (140-400); RED BLOOD COUNT 5.01 x10^6/uL (3.50-5.40); RED CELL DISTRIBUTION WIDTH 17.6 % (11.5-14.5); WHITE BLOOD COUNT 8.3 x10^3/uL (4.0-11.0)
[2019-11-25 16:26] VITALS: BP 192/81
[2019-11-25 16:27] LABS: CALCIUM 9.5 mg/dL (8.5-10.1); GFR 53.6; POTASSIUM 3.5 mmol/L (3.5-5.1)
[2019-11-25] MEDS ORDERED: IOHEXOL 350 MG/ML 100 ML VIAL. IV ONE (16:45)
[2019-11-25] MEDS ORDERED: CONTRAST GIVEN. MC PRN (16:45)
--- NOTE | 2019-11-25 17:13 | RAD ---
CT HEAD WO CONTRAST Clinical indications: Headache COMPARISON: August 17, 2018. Technique: Noncontrast axial cross sectional scanning of the head was performed. PQRS compliance Statement One or more of the following individualized dose reduction techniques were utilized for this study: 1. Automated exposure control 2. Adjustment of the mA and/or kV according to patient size 3. Use of iterative reconstruction technique Findings: No acute intracranial hemorrhage or midline shift or mass-effect or hydrocephalus or extra-axial fluid collection is seen. An old infarct is seen involving the head of the caudate nucleus and anterior basal ganglia on the right side. No new focal hypodense area or sulci effacement is seen to indicate an acute infarct or edema radiographically. No skull fracture or pneumocephalus is seen. No opacification of the mastoid sinuses or the middle ear cavities or the paranasal sinuses is seen. The maxillary sinuses are not completely seen in this study. Impression: No acute intracranial abnormality is seen. Electronically signed by: Keith Maxwell MD (11/25/2019 5:10 PM) [id number]
--- NOTE | 2019-11-25 17:22 | RAD ---
CTA of the head and neck with contrast 11/25/2019 Clinical history: Headache. Technique: After the intravenous administration of 100 cc of Isovue-370, contiguous, 0.625 mm axial sections were obtained through the upper chest, neck and head. Multiplanar 3-D MIP and volume rendered 3-D reconstructed images were obtained. One or more of the following individualized dose reduction techniques were utilized for this study: 1. Automated exposure control. 2. Adjustment of the mA and/or kV according to patient size. 3. Use of iterative reconstruction technique. Findings: Comparison is made to patient's CT scan of the head performed earlier today. Scattered atherosclerotic plaque formation seen involving the thoracic aortic arch and its branches. The origins of the brachiocephalic, left common carotid and left subclavian arteries from the thoracic aortic arch are patent. The origin of the right common carotid artery and both vertebral arteries are patent. The common carotid arteries are tortuous bilaterally but patent. Mild atheromatous/atherosclerotic plaque formation seen involving both carotid bifurcations. No hemodynamically significant stenosis is seen. The internal carotid arteries within the neck are tortuous but patent. The vertebral arteries are codominant. Both vertebral arteries demonstrate normal antegrade flow. No area stenosis or occlusion is seen. Intracranially, scattered atherosclerotic plaque formation is seen involving the cavernous portions of both internal carotid arteries. No hemodynamically significant stenosis or area of occlusion is seen. The basilar artery is patent. The anterior, middle and posterior cerebral arteries and their branches are within normal limits. No area of stenosis or occlusion is seen. No intracranial aneurysm is noted. The major dural venous sinuses are patent. No area of abnormal contrast enhancement is seen. No acute soft tissue abnormality is seen involving the neck. Degenerative changes are seen involving the uncovertebral and facet joints throughout the cervical disc spaces. Impression: 1. Mild atheromatous/atherosclerotic plaque formation is seen involving both carotid bifurcations. No hemodynamically significant stenosis is seen. 2. No intracranial stenosis or area of occlusion is seen. Stenosis calculation for CTA are based on measurement of the distal internal carotid artery diameter in accordance with the NASCET methodology. Electronically signed by: Khanh Childers MD (11/25/2019 5:19 PM) [id number]
== END 2019-11-25 18:05 | disposition home or self-care (01) ==
LOC: ER 15:23
DX: G43.909 Migraine, unspecified, not intractable, without status migrainosus (principal); R20.0 Anesthesia of skin; I48.20 Chronic atrial fibrillation, unspecified; E11.9 Type 2 diabetes mellitus without complications; E78.00 Pure hypercholesterolemia, unspecified; I10 Essential (primary) hypertension; E03.9 Hypothyroidism, unspecified; Z90.710 Acquired absence of both cervix and uterus; Z90.89 Acquired absence of other organs; Z98.51 Tubal ligation status; Z98.890 Other specified postprocedural states; Z86.73 Personal history of transient ischemic attack (TIA), and cerebral infarction without residual deficits; Z88.0 Allergy status to penicillin; Z88.1 Allergy status to other antibiotic agents; Z88.2 Allergy status to sulfonamides; Z91.040 Latex allergy status; Z91.018 Allergy to other foods
CPT/HCPCS: 36415; 70450; 70496; 70498; 80048; 85025; 96361; 96374; 96375; 99285; J0780; J1200; J7030; Q9967

== ENCOUNTER → 2021-05-06 | Outpatient (CLI) | payer BC ==
[~2021-05-06] MED LIST changes: +CLIN-94 PO; -CLIN300C8 PO
--- NOTE | 2021-05-07 08:49 | KCIC ---
US RENAL BILAT History: Reason: CKD STAGE 3 DUE TO TYPE 2 DIABETES MELLITUS / Spl. Instructions: / History: Comparison: None. Procedure: Transabdominal ultrasound images are obtained of the kidneys and bladder. Findings: Right kidney: measures 13.3 x 5.6 x 5.5 cm. Normal cortical echotexture. Corticomedullary differenti ation is preserved. No hydronephrosis. Left kidney: measures 13.6 x 4.6 x 4.2 cm. Normal cortical echotexture. Corticomedullary differentia tion is preserved. No hydronephrosis. Urinary bladder: No urinary bladder wall thickening. Bilateral ureteral jets are identified. Aorta and IVC are not well evaluated due to overlying structures. IMPRESSION: 1. Unremarkable renal ultrasound. Electronically signed by: Timi Alfaro DO (05/07/2021 8:47 AM) [id number]
== END ==
LOC: KCIC US 13:44
PROVIDERS: ATTEND Family Medicine
DX: E11.22 Type 2 diabetes mellitus with diabetic chronic kidney disease (principal); N18.30 Chronic kidney disease, stage 3 unspecified
CPT/HCPCS: 76770